=== PATIENT | female | born 1995 | race Caucasian/White ===

== ENCOUNTER 2017-09-03 10:40 | Inpatient (IN) | payer OTHER ==
--- NOTE | 2017-09-03 11:09 | HP ---
General Information - General Information Maternal Age: 22 Grav: 2 Para: 0 SAB: 1 IEA: 0 Estimated Due Date: 08/29/17 Determined By: Early Ultrasound Gestational Age in Weeks and Days: 40 Weeks and 5 Days Maternal Blood Type and Rh: A Positive - Results this Serology/RPR Result: Non-Reactive Rubella Result: Immune HBsAg Result: Negative HIV Result: Negative GBS Culture Result: Negative Past Medical History Delivery History: See Records Delivery History Comment: primip Pertinent Past Medical History: Non-Contributory Pertinent Past Surgical History: See Records Past Surgical History Comment: Hx ear tube placement, adenoidectomy, age 14 left breast abscess removal Pertinent Family History: See Records Family History Comment: MGM breast cancer - Antepartal Records Antepartal Records: Reviewed, Uncomplicated Review of Systems Constitutional: Uncomfortable - with UCs CV Complaint: No Respiratory: Shortness of Breath: No Gastrointestinal: No Nausea/Vomiting, Normal Bowel Movement Genitourinary: No Dysuria, No Bleeding, No Leaking Fluid Musculoskeletal: Contractions Neurological: No Headache, No Visual Changes Movement: Normal Exam Allergies/Adverse Reactions: Allergies bee venom protein (honey bee) Allergy (Verified 08/30/17 11:42) Hives Pork/Porcine Containing Products Allergy (Verified 09/03/17 10:58) Unknown Reaction Details turkey Allergy (Verified 09/03/17 10:58) Unknown Reaction Details BP 93/66 HR 76 RR 20 T 98.8 - Measurements Height: 5 ft 6 in Weight: 194 lb Weight in lbs: 194 Body Mass Index (BMI): 31.3 Pre- Weight: 163 lb Weight Gained This : 31 lbs and 0 ozs - Exam Abdomen: No Upper Quadrant Pain Breast: Breast Exam Deferred CVA: No CVA Tenderness Extremities: Edema - mild bilateral pedal edema Heart: Normal Rhythm/Heart Sounds HEENT: No Significant Findings Lungs: Clear Bilaterally Rectal: Rectal Exam Deferred Reflexes: DTR 2+ Thyroid: No Thyromegaly - Abdominal Exam Abdomen Exam: Non-Tender - between UCs, Fundal Height Consistent with Dates - Ultrasound/Biophysical Profile Ultrasound Status: Not Done Targeted Exam Findings See L&D Outpatient Visit Provider Note for Findings: N/A Estimated Weight: EFW 8lbs Cervical Exam: 4cm Effacement: 100% Presenting Part: Vertex Membrane Status: Intact Sterile Speculum Exam: not done Bleeding/Discharge: Bloody Show EFM Findings - External Monitor Findings Baseline Heart Rate: 130 - Difficult to trace due to maternal discomfort/ movement External Monitor Findings: Accelerations Present, No Pattern of Variable or Late Decelerations, Variability Moderate, Baseline Stable External Monitor Findings Comment: No evidence of metabolic acidemia Contractions: Regular, Moderate, >90 Seconds Contraction Frequency: q 2-3 Assessment/Plan - Reason for Visit Reason for Visit: labor evaluation - Obstetrical Risk Factors Risk Factors Comment: None - Plan Plan: Active Labor Plan Comment: Admit. Pt requests something for pain. Plan IV placement and labs. Anticipate - Date/Time of Admission Date of Admission: 09/03/17 Time of Admission: 11:09
[2017-09-03 11:33] LABS: ABS Basophils 0 10^3/ul (0-0.2); ABS Eosinophils 0 10^3/ul (0-0.6); ABS Monocytes 0.7 10^3/ul (0-0.8); ABS Neutrophils 9.2 10^3/ul (1.5-7.7); ABS Nucleated RBC 0 10^3/ul; Eosinophil % 0.3 % (0-6); Hematocrit 29 % (35-47); Hemoglobin 9.8 g/dl (12.0-16.0); Lymphocyte % 17.1 % (25-47); Mean Corpuscular HGB Conc 33 g/dl (31-36); Mean Corpuscular Hemoglobin 28 pg (27-31); Mean Corpuscular Volume 85 fL (80-97); Mean Platelet Volume 9.3 um3 (7.4-10.4); Nucleated Red Blood Cells % 0; Platelet Count 176 10^3/ul (150-450); Red Blood Count 3.45 10^6/ul (4.0-5.4); Red Cell Distribution Width 16 % (10.5-15); White Blood Count 11.9 10^3/ul (3.5-10.8)
[2017-09-03] MEDS ORDERED: OBEPIDURAL* 250 ML EPIDURAL ONE (11:51)
[2017-09-03] MEDS ORDERED: EPHEDrine (Pressors)* 50 MG/ML VIAL IV PUSH PRN (12:15)
[2017-09-03] MEDS ORDERED: Famotidine TAB* 20 MG PO PRN (12:15)
[2017-09-03] MEDS ORDERED: Sodium Citrate/Citric Acid* 15 ML UDC PO PRN (12:15)
[2017-09-03] MEDS ORDERED: Phenylephrine IV* 40 MCG/ML 10 ML SYRINGE IV PUSH PRN (12:15)
[2017-09-03] MEDS ORDERED: OBEPIDURAL* 250 ML EPIDURAL SCH (13:00)
[2017-09-03] MEDS ORDERED: Glycerin ADULT SUPP PR PRN (16:45)
[2017-09-03] MEDS ORDERED: Witch Hazel PAD* JAR TOPICAL PRN (16:45)
[2017-09-03] MEDS ORDERED: Dibucaine 1% 28.35 GM TUBE PR PRN (16:45)
[2017-09-03] MEDS ORDERED: Acetaminophen TAB* 325 MG PO PRN (16:45)
[2017-09-03] MEDS ORDERED: OXYTOCIN* 10 UNITS/ML 1 ML VIAL IM ONE (16:45)
[2017-09-03] MEDS: Simethicone TAB* 80 MG TAB.CHEW PO SCH (17:48)
[2017-09-03] MEDS: Docusate CAP* 100 MG PO SCH (19:37)
[2017-09-03] MEDS: Ibuprofen TAB* 600 MG PO PRN (19:37)
[2017-09-04] MEDS: Simethicone TAB* 80 MG TAB.CHEW PO SCH ×5 (04:18→22:30)
[2017-09-04] MEDS: Ibuprofen TAB* 600 MG PO PRN ×2 (04:20→16:26)
[2017-09-04 06:36] LABS: ABS Basophils 0 10^3/ul (0-0.2); ABS Eosinophils 0.1 10^3/ul (0-0.6); ABS Monocytes 0.8 10^3/ul (0-0.8); ABS Neutrophils 8.6 10^3/ul (1.5-7.7); ABS Nucleated RBC 0 10^3/ul; Eosinophil % 0.6 % (0-6); Hematocrit 26 % (35-47); Hemoglobin 8.6 g/dl (12.0-16.0); Lymphocyte % 17.6 % (25-47); Mean Corpuscular HGB Conc 34 g/dl (31-36); Mean Corpuscular Hemoglobin 29 pg (27-31); Mean Corpuscular Volume 85 fL (80-97); Mean Platelet Volume 8.9 um3 (7.4-10.4); Nucleated Red Blood Cells % 0; Platelet Count 161 10^3/ul (150-450); Red Cell Distribution Width 16 % (10.5-15); White Blood Count 11.5 10^3/ul (3.5-10.8)
[2017-09-04] MEDS: Ferrous Gluconate TAB* 324 MG TAB PO SCH ×2 (08:48→21:15)
[2017-09-04] MEDS: Docusate CAP* 100 MG PO SCH ×3 (08:48→21:15)
[2017-09-05] MEDS: Ferrous Gluconate TAB* 324 MG TAB PO SCH (08:23)
[2017-09-05] MEDS: Docusate CAP* 100 MG PO SCH ×2 (08:23→14:17)
[2017-09-05] MEDS: Ibuprofen TAB* 600 MG PO PRN ×2 (08:23→14:17)
[2017-09-05 08:25] VITALS: BP 114/61
== END 2017-09-05 14:40 | disposition home or self-care (01) | DRG 560 ==
LOC: MCHOBOUT 10:40 → MCHOB 11:24
PROVIDERS: ADMIT Midwife; ATTEND Midwife
PROC: 0UQGXZZ Repair Vagina, External Approach (ICD-10-PCS; principal; 2017-09-03)
PROC: 10E0XZZ Delivery of Products of Conception, External Approach (ICD-10-PCS; 2017-09-03)
PROC: 10907ZC Drainage of Amniotic Fluid, Therapeutic from Products of Conception, Via Natural or Artificial Opening (ICD-10-PCS; 2017-09-03)
PROC: 4A1HXCZ Monitoring of Products of Conception, Cardiac Rate, External Approach (ICD-10-PCS; 2017-09-03)
DX: O48.0 Post-term pregnancy (principal); O71.4 Obstetric high vaginal laceration alone; Z3A.40 40 weeks gestation of pregnancy; Z37.0 Single live birth; Z80.3 Family history of malignant neoplasm of breast; Z91.030 Bee allergy status; Z91.018 Allergy to other foods; O90.81 Anemia of the puerperium
CPT/HCPCS: 36415; 85025; 86850; 86900; 86901; A9270-GY; J2590

== ENCOUNTER 2018-04-12 14:34 | Emergency (ER) | payer OTHER ==
--- NOTE | 2018-04-12 16:57 | ED ---
GI/ HPI - HPI Summary HPI Summary: A 22 y/o female presents to [facility] with a chief complaint of vaginal bleeding since 04/10/18. She rates her pain as a 7/10. The patient reports that she started to spot on 04/10/18 but increased bleeding started at 11:00 04/12/18. She reports going through 7 pads in 1.5 hours. The patient is 11 weeks on 04/14/17, but OB referred her to the ED for a possible miscarriage. She had an US when she was 6 weeks . Her LNMP was 01/27/18. She denies dysuria. In the ED she is still bleeding. She reports that before the bleeding started she had back pain and cramping in her lower abdomen. She describes the bleeding as clots. - History of Current Complaint Chief Complaint: EDVaginalBleeding Time Seen by Provider: 04/12/18 16:39 Stated Complaint: POSS MISCARRIAGE Hx Obtained From: Patient Hx Last Menstrual Period: 03/09/16 Onset/Duration: Started Days Ago, Still Present Timing: Constant, Lasting Days Severity: Severe Current Severity: Severe Vaginal Bleeding Description: Clots Number of Pads per Hour: 7 - in 1.5 hours Pain Intensity: 7 - out of 10 Location of Pain: Diffuse Pain Characteristics: Cramping Associated Signs and Symptoms: Positive: Back Pain - prior to bleeding, Abdominal Pain - Allergy/Home Medications Allergies/Adverse Reactions: Allergies Allergy/AdvReac Type Severity Reaction Status Date / Time bee venom protein (honey bee) Allergy Hives Verified 04/12/18 14:42 Pork/Porcine Containing Allergy Unknown Verified 04/12/18 14:42 Products Reaction Details turkey Allergy Unknown Verified 04/12/18 14:42 Reaction Details Home Medications: Home Medications NK [No Home Medications Reported] 04/12/18 [History Confirmed 04/12/18] PMH/Surg Hx/FS Hx/Imm Hx Endocrine/Hematology History: Denies: Hx Diabetes Cardiovascular History: Denies: Hx Hypertension - Surgical History Surgery Procedure, Year, and Place: ear tubes Infectious Disease History: No Infectious Disease History: Denies: Hx Clostridium Difficile, Hx Hepatitis, Hx Human Immunodeficiency Virus (HIV), Hx of Known/Suspected MRSA, Hx Shingles, Hx Tuberculosis, Hx Known/ Suspected VRE, Hx Known/Suspected VRSA, History Other Infectious Disease, Traveled Outside the [place] in Last 30 Days - Family History Known Family History: Negative: Cardiac Disease, Hypertension - Social History Alcohol Use: None Substance Use Type: Reports: None Smoking Status (MU): Never Smoked Tobacco Review of Systems Negative: Fever Positive: Abdominal Pain - before vaginal bleeding Positive: other - positive: vaginal bleeding. Negative: dysuria Positive: Myalgia - back pain before vaginal bleeding All Other Systems Reviewed And Are Negative: Yes Physical Exam - Summary Physical Exam Summary: Appearance: The patient is well-nourished in no acute distress and in no acute pain. Skin: The skin is warm and dry and skin color reflects adequate perfusion. HEENT: The head is normocephalic and atraumatic. The pupils are equal and reactive. The conjunctivae are clear and without drainage. Nares are patent and without drainage. Mouth reveals moist mucous membranes and the throat is without erythema and exudate. The external ears are intact. The ear canals are patent and without drainage. The tympanic membranes are intact. Neck: The neck is supple with full range of motion and non-tender. There are no carotid bruits. There is no neck vein distension. Respiratory: Chest is non-tender. Lungs are clear to auscultation and breath sounds are symmetrical and equal. Cardiovascular: Heart is regular rate and rhythm. There is no murmur or rub auscultated. There is no peripheral edema and pulses are symmetrical and equal. Abdomen: The abdomen is soft and non-tender. There are normal bowel sounds heard in all four quadrants and there is no organomegaly palpated. Musculoskeletal: There is no back tenderness noted. Extremities are non-tender with full range of motion. There is good capillary refill. There is no peripheral edema or calf tenderness elicited. Neurological: Patient is alert and oriented to person, place and time. The patient has symmetrical motor strength in all four extremities. Cranial nerves are grossly intact. Deep tendon reflexes are symmetrical and equal in all four extremities. Psychiatric: The patient has an appropriate affect and does not exhibit any anxiety or depression. Triage Information Reviewed: Yes Vital Signs On Initial Exam: Initial Vitals Temp Pulse Resp BP Pulse Ox 98.2 F 77 16 131/82 100 04/12/18 14:39 04/12/18 14:39 04/12/18 14:39 04/12/18 14:39 04/12/18 14:39 Vital Signs Reviewed: Yes Diagnostics - Vital Signs Vital Signs Temp Pulse Resp BP Pulse Ox 04/12/18 16:37 94 117/83 04/12/18 14:39 98.2 F 77 16 131/82 100 - Laboratory Result Diagrams: 04/12/18 16:54 Lab Statement: Any lab studies that have been ordered have been reviewed, and results considered in the medical decision making process. GIGU Course/Dx - Course Course Of Treatment: Ms. Sweet presented to the emergency department approximately 11 weeks . She had an ultrasound at 6 weeks. She started passing some blood earlier today and believes she passed tissue. She was nontoxic in appearance and her vital signs are stable here. She brings in a plastic bag with what looks like tissue. Labs were obtained and her hCG is 1300. She is below the cutoff to get ultrasound at this time and it is likely she has completed her miscarriage. She is not doing much bleeding here. I recommended follow-up with her MEDICAL BILLING ASSISTANT. - Diagnoses Provider Diagnoses: Miscarriage Discharge - Sign-Out/Discharge Documenting (check all that apply): Patient Departure - DC - Discharge Plan Condition: Stable Disposition: HOME Referrals: Nilda Desouza MD [Primary Care Provider] - (2-3 days) Additional Instructions: Follow up with your OBGYN. Return to the ED for any new or worsening symptoms. - Billing Disposition and Condition Condition: STABLE Disposition: Home - Attestation Statements Document Initiated by Gail: Yes Documenting Scribe: Rock Packer Provider For Whom Gail is Documenting (Include Credential): Brien Xavier MD Scribe Attestation: I, Rock Packer, scribed for Brien Xavier MD on 04/12/18 at 2113. Scribe Documentation Reviewed: Yes Provider Attestation: The documentation as recorded by the Rock duenas accurately reflects the service I personally performed and the decisions made by me, Brien Xavier MD Status of Scribe Document: Viewed
[2018-04-12 17:04] LABS: ABS Basophils 0.1 10^3/ul (0-0.2); ABS Eosinophils 0.1 10^3/ul (0-0.6); ABS Lymphocytes 2.8 10^3/ul (1.0-4.8); ABS Monocytes 0.6 10^3/ul (0-0.8); ABS Neutrophils 5.3 10^3/ul (1.5-7.7); ABS Nucleated RBC 0 10^3/ul; Eosinophil % 0.6 %; Hematocrit 37 % (35-47); Hemoglobin 12.6 g/dl (12.0-16.0); Lymphocyte % 31.8 %; Mean Corpuscular HGB Conc 34 g/dl (31-36); Mean Corpuscular Hemoglobin 29 pg (27-31); Mean Corpuscular Volume 84 fL (80-97); Mean Platelet Volume 7.9 fL (7.4-10.4); Nucleated Red Blood Cells % 0; Platelet Count 247 10^3/ul (150-450); Red Blood Count 4.41 10^6/ul (4.00-5.40); Red Cell Distribution Width 17 % (10.5-15); White Blood Count 8.7 10^3/ul (3.5-10.8)
[2018-04-12 17:13] LABS: Urine Appearance Cloudy; Urine Bacteria 1+ (Absent); Urine Bilirubin Negative (Negative); Urine Blood 3+ (Negative); Urine Color Yellow; Urine Glucose Negative (Negative); Urine Ketones Negative (Negative); Urine Nitrite Negative (Negative); Urine Protein Negative (Negative); Urine Red Blood Cell 3+(>10/hpf) (Absent); Urine Specific Gravity 1.017 (1.010-1.030); Urine Urobilinogen Negative (Negative); Urine White Blood Cell 1+(6-10/hpf) (Absent)
[2018-04-12 18:40] VITALS: BP 120/77
--- NOTE | 2018-04-14 05:45 | PN ---
Progress Note - Progress Note Date of Service: 04/14/18 Note: patient urine culture grew E coli >100,000. sent script for macrobid 100mg bid x7 days. called and spoke with patient about adding medication.
--- NOTE | 2018-04-15 05:59 | PN ---
Progress Note - Progress Note Date of Service: 04/15/18 Note: Patient was placed on Macrobid which final culture is sensitive to. No further action required.
== END 2018-04-12 18:38 | disposition home or self-care (01) ==
LOC: ED 14:34
DX: O03.9 Complete or unspecified spontaneous abortion without complication (principal)
CPT/HCPCS: 36415; 81003; 81015; 84702; 85025; 87077; 87086; 87186; 88305; 99282

== ENCOUNTER → 2018-07-29 14:02 | Emergency (ER) | payer OTHER ==
--- NOTE | 2018-07-29 14:33 | ED ---
- HPI Summary HPI Summary: 23-year-old female LMP Jun 10 presents with vaginal spotting today. States she's had trace blood when wiped the past couple days. she denies any bowel pain. No nausea vomiting. No fevers. No urinary symptoms. She states that today just started to be enough to clot in pad. She states she has history of miscarriages and is worried she is having one. Has no medical conditions. blood type A+. - History of Current Complaint Chief Complaint: EDOBProblems Stated Complaint: POSS MISCARRIAGE PER PT Time Seen by Provider: 07/29/18 14:23 Pain Intensity: 0 - Assessment Hx Now: No Hx : 2 SAB: 1 IEA: 0 - Additional Pertinent History Maternal Blood Type and Rh: A Positive - Allergies/Home Medications Allergies/Adverse Reactions: Allergies Allergy/AdvReac Type Severity Reaction Status Date / Time bee venom protein (honey bee) Allergy Hives Verified 07/29/18 14:08 Home Medications: Home Medications NK [No Home Medications Reported] 07/29/18 [History Confirmed 07/29/18] PMH/Surg Hx/FS Hx/Imm Hx Endocrine/Hematology History: Denies: Hx Diabetes Cardiovascular History: Denies: Hx Hypertension - Surgical History Surgery Procedure, Year, and Place: ear tubes Infectious Disease History: No Infectious Disease History: Denies: Hx Clostridium Difficile, Hx Hepatitis, Hx Human Immunodeficiency Virus (HIV), Hx of Known/Suspected MRSA, Hx Shingles, Hx Tuberculosis, Hx Known/ Suspected VRE, Hx Known/Suspected VRSA, History Other Infectious Disease, Traveled Outside the [place] in Last 30 Days - Family History Known Family History: Positive: None - negative for HTN or CAD Negative: Cardiac Disease, Hypertension - Social History Alcohol Use: None Substance Use Type: Reports: None Smoking Status (MU): Never Smoked Tobacco Review of Systems Negative: Fever Negative: Chest Pain Negative: Shortness Of Breath Positive: Other - vaginal bleeding. Negative: Abdominal Pain Negative: dysuria All Other Systems Reviewed And Are Negative: Yes Physical Exam - Physical Exam Triage Information Reviewed: Yes Vital Signs Reviewed: Yes Appearance: Positive: Well-Appearing Skin: Positive: Warm, Dry Head/Face: Positive: Normal Head/Face Inspection Eyes: Positive: Normal, Conjunctiva Clear ENT: Positive: Pharynx normal Respiratory/Lung Sounds: Positive: Clear to Auscultation, Breath Sounds Present Cardiovascular: Positive: Normal, RRR Abdomen Description: Positive: Nontender, Soft Bowel Sounds: Positive: Present Musculoskeletal: Positive: Normal Neurological: Positive: Normal Psychiatric: Positive: Normal Diagnostics - Vital Signs Vital Signs Temp Pulse Resp BP Pulse Ox 07/29/18 14:03 97.9 F 90 16 136/91 98 - Laboratory Result Diagrams: 07/29/18 14:43 07/29/18 14:43 Lab Statement: Any lab studies that have been ordered have been reviewed, and results considered in the medical decision making process. - Ultrasound No standard instances Ultrasound Interpretation Completed By: Radiologist Summary of Ultrasound Findings: IMPRESSION: Single intrauterine gestation with a gestational age of 6 weeks 0 days. heart activity at 126 bpm. Course/Dx - Course Course Of Treatment: 23-year-old female LMP Jun 10 presents with vaginal spotting today. States she's had trace blood when wiped the past couple days. she denies any bowel pain. No nausea vomiting. No fevers. No urinary symptoms. She states that today just started to be enough to clot in pad. She states she has history of miscarriages and is worried she is having one. Has no medical conditions. On exam nontender abdomen. wbc 6.9 hcg 2999. ultrasound shows single intrauterine gestation at 6 weeks with heart activity at 126mph. will have follow up with ob. patient understand and agrees with plan. - Differential Diagnosis/HQI/PQRI: Threatened , Ectopic , Intrauterine - Diagnoses Provider Diagnoses: Vaginal bleeding during Discharge - Sign-Out/Discharge Documenting (check all that apply): Patient Departure Patient Received Moderate/Deep Sedation with Procedure: No - Discharge Plan Condition: Good Disposition: HOME Patient Education Materials: Threatened Miscarriage (ED) Referrals: Modesto Simms MD [Medical Doctor] - Additional Instructions: The education provided is for your information. You may or may not have a miscarriage at this point. Follow up with OBGYN as may need repeat HCG level drawn to trend Return to ED if develop severe abdominal pain, fever, severe bleeding with symptoms such as lightheadedness or any new or worsening symptoms - Billing Disposition and Condition Condition: GOOD Disposition: Home
[2018-07-29 14:50] LABS: ABS Basophils 0 10^3/ul (0-0.2); ABS Eosinophils 0.1 10^3/ul (0-0.6); ABS Lymphocytes 2.4 10^3/ul (1.0-4.8); ABS Monocytes 0.5 10^3/ul (0-0.8); ABS Neutrophils 3.9 10^3/ul (1.5-7.7); ABS Nucleated RBC 0 10^3/ul; Eosinophil % 0.9 %; Hematocrit 35 % (33-41); Hemoglobin 11.7 g/dL (12.0-16.0); Lymphocyte % 34.8 %; Mean Corpuscular HGB Conc 34 g/dL (31-36); Mean Corpuscular Hemoglobin 28 pg (27-31); Mean Corpuscular Volume 84 fL (80-97); Mean Platelet Volume 7.8 fL (7.4-10.4); Nucleated Red Blood Cells % 0; Platelet Count 245 10^3/uL (150-450); Red Blood Count 4.15 10^6 /uL (3.70-4.87); Red Cell Distribution Width 17 % (10.5-15); White Blood Count 6.9 10^3/uL (3.5-10.8)
[2018-07-29 15:18] LABS: Albumin 4.1 g/dL (3.2-5.2); Albumin/Globulin Ratio 1.6 (1-3); BUN/Creatinine Ratio 24.6 (8-20); Calcium 8.6 mg/dL (8.6-10.3); EGFR African American 149.8 (>60); EGFR Non-African American 123.8 (>60); Globulin 2.5 g/dL (2-4); Potassium 3.9 mmol/L (3.5-5.0); Total Bilirubin 0.3 mg/dL (0.2-1.0); Total Protein 6.6 g/dL (6.4-8.9)
[2018-07-29 16:16] VITALS: BP 125/71
== END | disposition home or self-care (01) ==
LOC: ED 14:02
DX: O20.9 Hemorrhage in early pregnancy, unspecified (principal); O09.291 Supervision of pregnancy with other poor reproductive or obstetric history, first trimester; Z3A.01 Less than 8 weeks gestation of pregnancy
CPT/HCPCS: 36415; 76817; 80053; 84702; 85025; 99282

== ENCOUNTER 2018-08-09 13:27 | Emergency (ER) | payer OTHER ==
--- OUTSIDE RECORDS SUMMARY | 2018-08-09 13:39 | XMS REPORT | Continuity of Care Document ---
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 Payers Date Identification Numbers Payment Provider Subscriber Policy Number: [id number] [facility] Tangela Downey PayID: [id number] [address] [place] [address] Policy Number: [id number] Medicaid [place] Tangela Downey PayID: [id number] [address] [place] [address] Advance Directives Description No Information Available Problems Resolved Problems Provider Date Primigravida Benjy Fair CNM Onset: 02/16/2017 Resolved: 09/03/2017 Family History Date Family Member(s) Observation Comments Father A&W Mother A&W Children 1 First Daughter A&W Siblings 11 all half siblings save for fraternal twin sister First Brother A&W Second Brother A&W Third Brother A&W Fourth Brother A&W First Sister A&W Second Sister A&W Third Sister A&W Fourth Sister A&W Fifth Sister A&W Sixth Sister A&W Paternal Grandfather A&W Paternal Grandmother A&W Maternal Grandfather A&W Maternal Grandmother due to Breast Cancer () Social History Type Date Description Comments Sex Unknown Education Currently working towards [employer] Marital Status Single Lives With Boyfriend and his parents Lives With Daughter Diet Patient is on a lactose-free diet Diet Allergy, Food turkey, pork Pets 3 dogs Pets 2 cats 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 Tobacco Use Start: Unknown Never Smoked Cigarettes ETOH Use Does Not Drink Alcohol Recreational Drug Use Does Not Use Drugs Tobacco Use Start: Unknown Patient has never smoked Smoking Status Reviewed: 08/06/18 Patient has never smoked Exercise Type/Frequency Exercises sporadically Seat Belt/Car Seat Always uses seat belt Currently Active Patient is currently sexually active Contraceptive Methods Current methods include condoms STD's No STD History Allergies, Adverse Reactions, Alerts Description No Known Drug Allergies Medications Active Medications SIG Qnty Indications Ordering Provider Date Ferrous Gluconate one tablet by 60tabs Elvia Barragan CNM 06/02/2017 mouth bid 324(38Fe) mg Tablets History Medications No Active Medications Unknown 02/16/2017 - 02/16/2017 Dha 1 by mouth every 90caps Maritza Jump, 02/16/2017 - 200mg day any generic ANP-C 04/14/2018 Capsules Flagyl 1 by mouth twice 14tabs Maritza Jump, 02/16/2017 - 500mg Tablets a day x7 start ANP-C 08/30/2017 02-21-2017 Immunizations CPT Code Status Date Vaccine Lot # [id number] Given 06/01/2017 Tetnus, Diptheria Toxoids And Acellular Pertussis, 9PD92 PT > 7Yrs Old [id number] Given 02/16/2017 Influenza Vaccine Quadrivalent Preser/Antibiotic [id number] Free Im Use Vital Signs Date Vital Result Comment 08/06/2018 10:35am BP Systolic 112 mmHg BP Diastolic 60 mmHg Height 64.5 inches 5'4.50" Weight 174.00 lb BMI (Body Mass Index) 29.4 kg/m2 Last Menstrual Period 1927457 3 Parity 1 04/14/2018 1:47pm BP Systolic 106 mmHg BP Diastolic 70 mmHg Height 64.5 inches 5'4.50" Weight 173.00 lb BMI (Body Mass Index) 29.2 kg/m2 Last Menstrual Period 9369508 3 Parity 1 10/22/2017 9:15am BP Systolic 108 mmHg BP Diastolic 64 mmHg Height 64.5 inches 5'4.50" Weight 169.00 lb BMI (Body Mass Index) 28.6 kg/m2 Last Menstrual Period 6382256 2 Parity 1 02/16/2017 2:06pm BP Systolic 112 mmHg BP Diastolic 70 mmHg Height 64.5 inches 5'4.50" Weight 165.00 lb BMI (Body Mass Index) 27.9 kg/m2 Last Menstrual Period 3510972 2 Parity 0 Results Test Date Facility Test Result H/L Range Note Laboratory test 08/02/2018 [facility] HCG <pending> finding [place] [address] [phone] Laboratory test 04/29/2018 [facility] HCG 9.95 mIU/mL 1 finding [place] [address] [phone] Laboratory test 04/14/2018 [facility] HCG 365.74 mIU/ mL [place] [address] [phone] Urinalysis 08/01/2017 [facility] Urine Color Yellow [place] [address] [phone] Urine Appearance Cloudy Urine Specific [place] 1.016 N 1.010-1.030 Urine pH 7.0 N 5-9 Urine Urobilinogen Negative Negative Urine Ketones Negative Negative Urine Protein Negative Negative Urine Leukocytes 3+ Abnormal Negative Urine Blood Negative Negative Urine Nitrite Negative Negative Urine Bilirubin Negative Negative Urine Glucose Negative Negative Urine White Blood Cell 2+(11-20/hpf) Abnormal Absent Urine Red Blood Cell 1+(3-5/hpf) Abnormal Absent Urine Bacteria Absent Absent Urine Squamous Epithelial Cell Present Abnormal Absent Laboratory test 08/01/2017 [facility] Rupture of Negative 3 finding [place] [address] Membranes [phone] Urine Culture And 08/01/2017 [facility] Urine Culture SEE RESULT 4 Sensitivities [place] [address] BELOW [phone] Urinalysis Profile 07/27/2017 [facility] Urine Color Yellow [place] [address] [phone] Urine Appearance Clear Urine Specific [place] 1.008 Low 1.010-1.030 Urine pH 6.0 N 5-9 Urine Urobilinogen Negative Negative Urine Ketones Negative Negative Urine Protein Negative Negative Urine Leukocytes Negative Negative Urine Blood Negative Negative Urine Nitrite Negative Negative Urine Bilirubin Negative Negative Urine Glucose Negative Negative Laboratory test 07/27/2017 [facility] Genital For SEE RESULT 5 finding [place] [address] GRP B Strep BELOW [phone] Only Laboratory test 06/01/2017 [facility] Glucose 1 HR 98 mg/dL N 70-160 6 finding [place] [address] Post Prandial [phone] CBC With No Diff 06/01/2017 [facility] White Blood 8.9 10^3/uL N 3.5-10 [place] [address] Count .8 [phone] Red Blood Count 2.98 10^6/uL Low 4.0-5.4 Hemoglobin 10.0 g/dL Low 12.0-16.0 Hematocrit 29 % Low 35-47 Mean Corpuscular Volume 97 fL N 80-97 Mean Corpuscular Hemoglobin 33 pg High 27-31 Mean Corpuscular HGB Conc 35 g/dL N 31-36 Red Cell Distribution Width 13 % N 10.5-15 Platelet Count 188 10^3/uL N 150-450 Mean Platelet Volume 10 um3 N 7.4-10.4 Urine Culture And 03/19/2017 [facility] Urine Culture SEE RESULT 7 [place] [address] BELOW [phone] CBC With No Diff 02/16/2017 [facility] White Blood 8.8 10^3/uL N 3.5-10 [place] [address] Count .8 [phone] Red Blood Count 3.89 10^6/uL Low 4.0-5.4 Hemoglobin 12.1 g/dL N 12.0-16.0 Hematocrit 37 % N 35-47 Mean Corpuscular Volume 95 fL N 80-97 Mean Corpuscular Hemoglobin 31 pg N 27-31 Mean Corpuscular HGB Conc 33 g/dL N 31-36 Red Cell Distribution Width 17 % High 10.5-15 Platelet Count 216 10^3/uL N 150-450 Mean Platelet Volume 9 um3 N 7.4-10.4 Type And Screen 02/16/2017 [facility] Patient [place] [address] [phone] Antibody Screen NEGATIVE N HIV 1/2 AB 02/16/2017 [facility] HIV 1 2 Nonreactive N Nonreactive 8 [place] [address] Antibody [phone] Lead 02/16/2017 [facility] Lead <1.0 g/dL 0.0-4.9 9 [place] [address] [phone] Submitting Laboratory 10 Toxoplasma Igg & 02/16/2017 [facility] Toxoplasma IgG Negative [place] [address] Antibody [phone] Toxoplasma IgG Antibody Index <3 IU/mL 11 Toxoplasma IgM Antibody Negative Negative 12 GC/Chlamydia Dna 02/16/2017 [facility] Chlamydia Negative [place] [address] trachomatis Rna [phone] Neisseria gonorrhoeae (GC) Rna Negative N Negative PNL No 02/16/2017 [facility] Rubella Screen Immune IU/ mL N Immune 13 [place] [address] [phone] Hemoglobin A1c 5.2 % N 4.0-5.6 14 Hepatitis B Surface Ag Nonreactive N Nonreactive 15 Syphillis Igg W/Reflex RPR Nonreactive N Nonreactive 16 1 <5.0 Negative 5.0 - 25.0 Indeterminate (Repeat testing recommended after 72 hours) >25.0 Positive Perimenopausal women can display HCG levels of up to 20 mIU/mL 2 <5.0 Negative 5.0 - 25.0 Indeterminate (Repeat testing recommended after 72 hours) >25.0 Positive Perimenopausal women can display HCG levels of up to 20 mIU/mL 3 A NEGATIVE results indicates there is no evidence of membrane rupture. 4 SEE RESULT BELOW Name: PAULINE DOWNEYORAH : [address]: Delfin Ga [facility] Acct: [id number] Unit: [id number] AGE: 22 Location: [facility] Re08/01/17 SEX: F Status: DEP REF SPEC: [id number] BHARAT: 08/01/17 [facility] DR: Delfin Ga [facility] REQ: [id number] RECD: 08/01/17 STATUS: SENDY RAND DR: Nilda Desouza MD _ SOURCE: URINE SPDESC: ORDERED: Urine Culture Procedure Result Reported Site Urine Culture Final 08/02/17- 0844 ML No growth of clinically significant organisms * ML - Main Lab . END OF REPORT DEPARTMENT OF PATHOLOGY, [address] [place] [address] Kehinde Weaver M.D. Director [facility] # [id number] 5 SEE RESULT BELOW Name: TANGELA DOWNEY : [address]: Kalyn Barragan [facility] Acct: [id number] Unit: [id number] AGE: 22 Location: [facility] Re07/27/17 SEX: F Status: REG REF SPEC: [id number] BHARAT: 07/27/17-[address]: Kalyn Barragan [facility] REQ: [id number] RECD: 07/27/17 STATUS: COMP _ SOURCE: CER/VAG/RE SPDESC: ORDERED: Grp B Strp Scrn COMMENTS: [id number] QUERIES: Is Patient Penicillin Allergic? N Is patient penicillin allergic and/or sensitivities needed? N Provider Requisition # C77#[id number] Procedure Result Reported Site Group B Strep Culture Screen Final 07/29/17- 1121 ML Group B Strep Screen Negative * ML - Main Lab . END OF REPORT DEPARTMENT OF PATHOLOGY, [address] [place] [address] Kehinde Weaver M.D. Director [facility] # [id number] 7 SEE RESULT BELOW Name: TANGELA DOWNEY : [address]: Delfin Ga CNM Acct: [id number] Unit: [id number] AGE: 21 Location: [facility] Re03/19/17 SEX: F Status: REG REF SPEC: [id number] BHARAT: 03/19/17-[address]: Delfin Ga CNM REQ: [id number] RECD: 03/19/17 STATUS: COMP _ SOURCE: URINE SPDESC: ORDERED: Urine Culture COMMENTS: [id number] Urine Source: Random Procedure Result Reported Site Urine Culture Final 03/21/17- 1128 ML No growth of clinically significant organisms * ML - MAIN LAB ([facility]) . END OF REPORT * ML=Testing performed at Main Lab DEPARTMENT OF PATHOLOGY, [address] [place] [address] Kehinde Weaver M.D. Director [facility] # [id number] 8 It is recognized that currently available assays for the detection of antibodies to HIV-1 and/or HIV-2 may not detect all infected individuals. HIV antibodies may be undetectable in some stages of the infection and in some clinical conditions. The performance of this assay has not been established for populations of infants or children. Assayed by Chemiluminescence Microparticle Immunoassay on the Siemens Advia Centaur CP. Values obtained with different methods or kits cannot be used interchangeably.The diagnostic specificity of the ADVIA Centaur 1/O/2 Enhanced assay in the low risk population was 99.90% (6012/6058) with a 95% confidence interval of 99.78 to 99.96%. 9 ADDITIONAL INFORMATION Testing performed by Inductively Coupled Plasma-Mass Spectrometry (ICP-MS). This test was developed and its performance characteristics determined by [facility] in a manner consistent with CLIA requirements. This test has not been cleared or approved by the U.S. Food and Drug Administration. 10 Test Performed by: [facility] [place] [address] 11 REFERENCE VALUE <=9 IU/mL (Negative) 10-11 IU/mL (Equivocal) >=12 IU/mL (Positive) Test Performed by: [facility] [address] 12 No IgM antibodies to T. gondii detected. Results may be negative up to 7 days following infection. 13 [id number] 14 Therapeutic target for the treatment of diabetes mellitus patients is <7% HBA1C, and in selective patients <6.0%. Please refer to [place] [employer] diabetic care guidelines for further information. 15 [id number] 16 Warning: A positive result is not useful for establishing a diagnosis of syphilis. In most situations, such a result may reflect a prior treated infection; a negative result can exclude a diagnosis of syphilis except for incubating or early primary disease. Procedures Date Code Description Status 09/03/2017 65503 Obstetric Care Routine Completed 09/02/2017 76732 Non-Stress Test Completed 08/30/2017 47019 Non-Stress Test Completed 08/01/2017 34408 Non-Stress Test Completed 07/27/2017 14678 Echography Uterus Limited Completed 07/27/2017 25887 Non-Stress Test Completed 04/07/2017 90591 Echography Uterus Complete Completed 02/16/2017 37476 OB Ultrasound First Trimester Completed Encounters Type Date Location Provider Dx Diagnosis Office Visit 04/14/2018 [facility] Elvia Barragan CNM O03.4 Incomplete 2:00p spontaneous without complication Office Visit 09/02/2017 Delivery Ashley Lauryn, O47.1 False labor at or 8:03a LM after 37 completed weeks of gestation Office Visit 08/30/2017 Delivery Benjy Fair CNM O36.8131 Decreased 9:15a movements, third trimester, fetus 1 Office Visit 08/01/2017 Delivery Delfin Sury, O47.1 False labor at or 9:43a CNM after 37 completed weeks of gestation Office Visit 07/27/2017 Delivery Benjy Fair CNM O47.03 False labor before 37 8:26a completed weeks of gest, third tri Plan of Treatment Future Appointment(s):08/19/2018 2:00 pm - Jennifer Rosenbaum CNM at [facility]08/19/2018 1:30 pm - Ultrasounds at [facility]
[2018-08-09] MEDS ORDERED: NS 0.9% 1000 ML** 1,000 ML IV ONE (14:07)
[2018-08-09] MEDS ORDERED: Ketorolac INJ* 30 MG/ML 1 ML VIAL IV PUSH ONE (14:07)
--- NOTE | 2018-08-09 14:15 | ED ---
GI/ HPI - HPI Summary HPI Summary: Pt is a 23 y/o F presenting to the ED with a chief complaint of issues. The pt was 7 weeks , and she had a miscarriage on the 05 of August. She has had one miscarriage before, in March of 2018. She initially experienced pain on 08/07, but it was mild and only in her L hip area. This morning, she woke up with an intense burning pain all in her lower abd. She took IBU which did not help, the pain is worsened with movement, and the bleeding is heavy, causing her to go through approximately one pad every 1.5 hours. Pt denies any fever, chills, erythema of eyes, sore throat, CP, SOB, cough, N/V , dysuria, hematuria, myalgia, edema, rash, dizziness, or lightheadedness. - History of Current Complaint Chief Complaint: EDVaginalBleeding Time Seen by Provider: 08/09/18 13:55 Stated Complaint: VAGINAL BLEEDING, CRAMPING PER PT Hx Obtained From: Patient Hx Last Menstrual Period: 03/09/16 Onset/Duration: Started Hours Ago, Still Present Timing: Constant, Lasting Hours Severity: Severe Current Severity: Severe Vaginal Bleeding Description: Bright Red Number of Pads per Day: 9 Number of Pads per Hour: 1 Pain Intensity: 7 Location of Pain: Suprapubic Pain Characteristics: Cramping, Burning Associated Signs and Symptoms: Positive: Abdominal Pain. Negative: Dizziness, Nausea, Vomiting, Fever, Hematuria, Dysuria, Chills, Lightheadedness, Cough, Chest Pain - Allergy/Home Medications Allergies/Adverse Reactions: Allergies Allergy/AdvReac Type Severity Reaction Status Date / Time bee venom protein (honey bee) Allergy Hives Verified 08/09/18 13:28 PMH/Surg Hx/FS Hx/Imm Hx Previously Healthy: Yes Endocrine/Hematology History: Denies: Hx Diabetes Cardiovascular History: Denies: Hx Hypertension - Surgical History Surgery Procedure, Year, and Place: ear tubes Infectious Disease History: No Infectious Disease History: Denies: Hx Clostridium Difficile, Hx Hepatitis, Hx Human Immunodeficiency Virus (HIV), Hx of Known/Suspected MRSA, Hx Shingles, Hx Tuberculosis, Hx Known/ Suspected VRE, Hx Known/Suspected VRSA, History Other Infectious Disease, Traveled Outside the [place] in Last 30 Days - Family History Known Family History: Negative: Cardiac Disease, Hypertension - Social History Alcohol Use: None Hx Substance Use: No Substance Use Type: Reports: None Hx Tobacco Use: No Smoking Status (MU): Never Smoked Tobacco Review of Systems Negative: Fever, Chills Negative: Erythema Negative: Sore Throat Negative: Chest Pain Negative: Shortness Of Breath, Cough Positive: Abdominal Pain. Negative: Vomiting, Nausea Positive: burning, other - vaginal bleeding. Negative: dysuria, hematuria Negative: Myalgia, Edema Negative: Rash Neurological: Negative - lightheadedness, dizziness All Other Systems Reviewed And Are Negative: Yes Physical Exam - Summary Physical Exam Summary: Constitutional: Well-developed, Well-nourished, Alert. (-) Distressed Skin: Warm, Dry HENT: Normocephalic; Atraumatic Eyes: Conjunctiva normal Neck: Musculoskeletal ROM normal neck. (-) JVD, (-) Stridor, (-) Tracheal deviation Cardio: Rhythm regular, rate normal, Heart sounds normal; Intact distal pulses; The pedal pulses are 2+ and symmetric. Radial pulses are 2+ and symmetric. (-) Murmur Pulmonary/Chest wall: Effort normal. (-) Respiratory distress, (-) Wheezes, (-) Rales Abd: Soft, Mild diffuse abd tenderness, with most tenderness in lower abd bilaterally, (-) Distension, (-) Guarding, (-) Rebound Musculoskeletal: (-) Edema Lymph: (-) Cervical adenopathy Neuro: Alert, Oriented x3 Psych: Mood and affect Normal Triage Information Reviewed: Yes Vital Signs On Initial Exam: Initial Vitals Temp Pulse Resp BP Pulse Ox 97.9 F 83 16 132/83 98 08/09/18 13:28 08/09/18 13:28 08/09/18 13:28 08/09/18 13:28 08/09/18 13:28 Vital Signs Reviewed: Yes Diagnostics - Vital Signs Vital Signs Temp Pulse Resp BP Pulse Ox 08/09/18 13:28 97.9 F 83 16 132/83 98 - Laboratory Result Diagrams: 08/09/18 14:20 08/09/18 14:20 Lab Statement: Any lab studies that have been ordered have been reviewed, and results considered in the medical decision making process. - Ultrasound No standard instances Ultrasound Interpretation Completed By: Radiologist Summary of Ultrasound Findings: Transvaginal US. Negative for appreciable retained products of conception. ED physician has reviewed this report. GIGU Course/Dx - Course Course Of Treatment: Pt is a 23 y/o F presenting to the ED with a chief complaint of vaginal bleeding/pain. She miscarried a baby on 08/05, the tissue has been sent to pathology, but she started experiencing pain on 08/07. She woke up this morning with intense burning pain in her lower abd and bleeding at a rate of about 1 pad every 1.5 hours. Pt denies any fever, chills, erythema of eyes, sore throat, CP, SOB, cough, N/V, dysuria, hematuria, myalgia, edema, rash , dizziness, or lightheadedness. Transvaginal US shows: Negative for appreciable retained products of conception. She will be signed out to Dr. Otero pending CT A/P results, with dx of lower abd pain. - Diagnoses Provider Diagnoses: Lower abdominal pain Discharge - Sign-Out/Discharge Documenting (check all that apply): Sign-Out Patient Signing out patient TO: Brien Otero - Discharge Plan Condition: Stable Referrals: No Primary Care Phys,NOPCP [Primary Care Provider] - - Attestation Statements Document Initiated by Scribe: Yes Documenting Scribe: Kalyn Bradley Provider For Whom Scribe is Documenting (Include Credential): Jose Iniguez MD. Scribe Attestation: Kalyn Ro, scribed for Jose Iniguez MD. on 08/09/18 at 1858. Status of Scribe Document: Ready
[2018-08-09 14:27] LABS: ABS Basophils 0 10^3/ul (0-0.2); ABS Eosinophils 0.1 10^3/ul (0-0.6); ABS Lymphocytes 1.9 10^3/ul (1.0-4.8); ABS Monocytes 0.5 10^3/ul (0-0.8); ABS Neutrophils 3.8 10^3/ul (1.5-7.7); ABS Nucleated RBC 0 10^3/ul; Eosinophil % 1.3 %; Hematocrit 34 % (33-41); Hemoglobin 11.2 g/dL (12.0-16.0); Lymphocyte % 30.5 %; Mean Corpuscular HGB Conc 34 g/dL (31-36); Mean Corpuscular Hemoglobin 28 pg (27-31); Mean Corpuscular Volume 85 fL (80-97); Mean Platelet Volume 7.8 fL (7.4-10.4); Nucleated Red Blood Cells % 0.1; Platelet Count 210 10^3/uL (150-450); Red Blood Count 3.96 10^6 /uL (3.70-4.87); Red Cell Distribution Width 16 % (10.5-15); White Blood Count 6.4 10^3/uL (3.5-10.8)
[2018-08-09 14:44] LABS: Albumin/Globulin Ratio 1.7 (1-3); BUN/Creatinine Ratio 23.5 (8-20); C Reactive Protein 1.31 mg/L (<8.01); Calcium 8.8 mg/dL (8.6-10.3); EGFR African American 132.2 (>60); EGFR Non-African American 109.2 (>60); Globulin 2.4 g/dL (2-4); Potassium 3.8 mmol/L (3.5-5.0); Total Bilirubin 0.3 mg/dL (0.2-1.0); Total Protein 6.4 g/dL (6.4-8.9)
[2018-08-09 15:59] LABS: Urine Appearance Clear; Urine Bacteria 3+ (Absent); Urine Bilirubin Negative (Negative); Urine Blood 3+ (Negative); Urine Color Yellow; Urine Glucose Negative (Negative); Urine Ketones Negative (Negative); Urine Nitrite Positive (Negative); Urine Protein Negative (Negative); Urine Red Blood Cell Trace(0-2/hpf) (Absent); Urine Specific Gravity 1.023 (1.010-1.030); Urine Squamous Epithelial Cell Present (Absent); Urine Urobilinogen Negative (Negative); Urine White Blood Cell Trace(0-5/hpf) (Absent)
[2018-08-09] MEDS ORDERED: oxyCODONE/Acetamin 5/325 MG* TAB PO ONE (17:11)
[2018-08-09] MEDS ORDERED: Iohexol 300* (CONTRAST) 10 ML SDV IV ONE (17:47)
[2018-08-09 20:17] VITALS: BP 108/64
--- NOTE | 2018-08-09 20:20 | ED ---
Progress - Progress Note Progress Note: The patient is a 23 year old female who [facility] who was a sign out from Dr. Iniguez and received by Dr. Otero. She is pending disposition and CT A/P report results. - Results/Orders Results/Orders: CT A/P Reveals No CT findings to correlate with patient's symptomatology as per radiologist report. ED Physician has reviewed this radiology report. Course/Dx - Course Course Of Treatment: Pt is a 23 y/o F who was signed out to Dr. Otero pending CT A/P results, with dx of lower abd pain. The CT A/P report revealed negative findings. The patient will be D/C home with a dx of spontaneous . - Diagnoses Provider Diagnoses: Spontaneous Discharge - Sign-Out/Discharge Documenting (check all that apply): Patient Departure, Receiving Sign-Out Receiving patient FROM: Jose Iniguez Patient Received Moderate/Deep Sedation with Procedure: No - Discharge Plan Condition: Improved Disposition: HOME Prescriptions: oxyCODONE TAB* [Roxycodone TAB 5 mg*] 5 mg PO Q4H PRN #10 tab MDD 6 tabs PRN Reason: Pain Patient Education Materials: Miscarriage (ED) Referrals: No Primary Care Phys,NOPCP [Primary Care Provider] - Additional Instructions: Contact your OB tomorrow for followup, if your symptoms continue you may need a d&c, but hopefully your body will heal without it. - Billing Disposition and Condition Condition: IMPROVED Disposition: Home - Attestation Statements Document Initiated by Gail: Yes Documenting Scribe: Delio Medellin Provider For Whom Gail is Documenting (Include Credential): Dr. Brien Borregoibchuck Attestation: Delio Ro scribed for Dr. Brien Otero on 08/10/18 at 0100. Scribe Documentation Reviewed: Yes Provider Attestation: The documentation as recorded by the Delio duenas accurately reflects the service I personally performed and the decisions made by me, Dr. Brien Otero Status of Scribe Document: Viewed
--- NOTE | 2018-08-11 16:03 | PN ---
Progress Note - Progress Note Date of Service: 08/09/18 Note: Urine culture growing >100k e. coli. Pt. not treated. I called and spoke with pt. today at 1600 and discussed results. Will start on keflex based on sensitivity, rx sent to pharmacy. Pt. understands and agrees with plan. <Zachariah Casillas - Last Filed: 08/11/18 16:01> Attestation Statement Provider Attestation: I was available for consult. This patient was seen by the DANIEL. The patient was not presented to, seen by, or examined by me. -Conchis <Janie Del Toro - Last Filed: 08/12/18 15:27>
== END 2018-08-09 20:15 | disposition home or self-care (01) ==
LOC: ED 13:27
DX: O03.9 Complete or unspecified spontaneous abortion without complication (principal); R10.30 Lower abdominal pain, unspecified
CPT/HCPCS: 36415; 74177; 76830; 80053; 81003; 81015; 83605; 83690; 85025; 86140; 87077; 87086; 87186; 96361; 96374; 99284; A9270-GY; J1885; Q9967

== ENCOUNTER 2018-11-14 17:32 | Emergency (ER) | payer MEDICAID, OTHER ==
[2018-11-14 18:02] VITALS: BP 105/57
--- NOTE | 2018-11-14 18:06 | UC ---
Complaint Female HPI - HPI Summary HPI Summary: 2 days of pain and burning with urination no fevers, low back but no flank pain - History Of Current Complaint Chief Complaint: UCGU Stated Complaint: BURNING URINATION Time Seen by Provider: 11/14/18 18:05 Hx Obtained From: Patient Hx Last Menstrual Period: [id number] ?: No Onset/Duration: Gradual Onset, Lasting Days - 2 Timing: Constant Pain Intensity: 9 Pain Scale Used: 0-10 Numeric Character: Burning Aggravating Factor(s): Urination Alleviating Factor(s): Position - Allergies/Home Medications Allergies/Adverse Reactions: Allergies Allergy/AdvReac Type Severity Reaction Status Date / Time bee venom protein (honey bee) Allergy Hives Verified 11/14/18 18:03 Home Medications: Home Medications Cranberry Fruit Extract [Cranberry Extract] 1 tab PO DAILY 11/14/18 [History Confirmed 11/14/18] PMH/Surg Hx/FS Hx/Imm Hx Previously Healthy: Yes - Surgical History Surgical History: Yes Surgery Procedure, Year, and Place: ear tubes - Family History Known Family History: Negative: Cardiac Disease, Hypertension - Social History Occupation: Employed Full-time Lives: With Family Alcohol Use: None Substance Use Type: None Smoking Status (MU): Never Smoked Tobacco - Immunization History Most Recent Influenza Vaccination: 02/16/17 Most Recent Pneumonia Vaccination: Unknown Review of Systems All Other Systems Reviewed And Are Negative: Yes Constitutional: Positive: Negative Skin: Positive: Negative Eyes: Positive: Negative ENT: Positive: Negative Respiratory: Positive: Negative Cardiovascular: Positive: Negative Gastrointestinal: Positive: Negative Genitourinary: Positive: Dysuria, Frequency, Urgency Motor: Positive: Negative Neurovascular: Positive: Negative Musculoskeletal: Positive: Negative Neurological: Positive: Negative Psychological: Positive: Negative Is Patient Immunocompromised?: Yes Physical Exam Triage Information Reviewed: Yes Appearance: Well-Appearing, No Pain Distress, Well-Nourished Vital Signs: Initial Vital Signs Temp 98.7 F 11/14/18 17:57 Pulse 87 11/14/18 17:57 Resp 16 11/14/18 17:57 BP 105/57 11/14/18 17:57 Pulse Ox 100 11/14/18 17:57 Vital Signs Reviewed: Yes Eye Exam: Normal Eyes: Positive: Conjunctiva Clear ENT Exam: Normal ENT: Positive: Normal ENT inspection, Hearing grossly normal. Negative: Trismus , Muffled voice, Hoarse voice Neck exam: Normal Neck: Positive: Supple, Nontender, No Lymphadenopathy Respiratory Exam: Normal Respiratory: Positive: Chest non-tender, Lungs clear, Normal breath sounds, No respiratory distress, No accessory muscle use Cardiovascular Exam: Normal Cardiovascular: Positive: RRR, No Murmur, Pulses Normal, Brisk Capillary Refill Abdominal Exam: Normal Abdomen Description: Positive: Nontender, No Organomegaly, Soft. Negative: CVA Tenderness (R), CVA Tenderness (L) Musculoskeletal Exam: Normal Musculoskeletal: Positive: Strength Intact, ROM Intact, No Edema Neurological Exam: Normal Neurological: Positive: Alert, Muscle Tone Normal Psychological Exam: Normal Skin Exam: Normal Complaint Female Dx - Course Course Of Treatment: increase fluids, ibuprofen for pain culture urine bactrim ds follow with pcp- - Differential Dx/Diagnosis Provider Diagnosis: UTI (urinary tract infection) Discharge - Sign-Out/Discharge Documenting (check all that apply): Patient Departure All imaging exams completed and their final reports reviewed: No Studies - Discharge Plan Condition: Stable Disposition: HOME Prescriptions: Sulfamethox/Trimethoprim DS* [Bactrim DS 800/160 TAB*] 1 tab PO BID #13 tab Patient Education Materials: Phenazopyridine (By mouth), Urinary Tract Infection in Women (ED) Referrals: [facility] [Outside] - 1 Week - Billing Disposition and Condition Condition: STABLE Disposition: Home
[2018-11-14] MEDS ORDERED: Sulfamethox/Trimethoprim DS 800/160* TAB PO ONE (18:25)
== END 2018-11-14 18:36 | disposition home or self-care (01) ==
LOC: UCEAST 17:32
DX: N39.0 Urinary tract infection, site not specified (principal)
CPT/HCPCS: 81002; 81025; 87077; 87086; 87186; 99212; A9270-GY; G0463

== ENCOUNTER 2018-11-15 20:57 | Emergency (ER) | payer OTHER ==
[2018-11-15 21:05] VITALS: BP 93/59
== END 2018-11-15 22:57 | disposition left against medical advice (07) ==
LOC: ED 20:57
DX: N39.0 Urinary tract infection, site not specified (principal); M79.10 Myalgia, unspecified site; Z53.21 Procedure and treatment not carried out due to patient leaving prior to being seen by health care provider

== ENCOUNTER 2019-02-10 11:31 | Emergency (ER) | payer OTHER ==
[2019-02-10 11:49] VITALS: BP 120/71
[2019-02-10] MEDS ORDERED: Acetaminophen TAB* 325 MG PO ONE (12:14)
--- NOTE | 2019-02-10 12:20 | UC ---
Abdominal Pain Female HPI - HPI Summary HPI Summary: 23-year-old female with history of weeks presents with complaints of abdominal pain. Patient states that 2 days ago she was riding on a tractor with her , she woke up the next morning with upper abdominal pain. States today the pain is more diffuse. Describes the pain as sharp. Worsens with movement especially when sitting up or laying down. No alleviating factors. Patient reports her usual nausea with . She is presently being treated for a urinary tract infection by her [employer]MENT [employer]NAGER. Denies fever, chills , chest pain, shortness of breath, vomiting, diarrhea, cramping, or vaginal bleeding. - History of Current Complaint Chief Complaint: UCAbdominalPain Stated Complaint: ABD PAIN Time Seen by Provider: 02/10/19 12:01 Hx Obtained From: Patient Hx Last Menstrual Period: [id number] Pain Intensity: 8 Allergies/Adverse Reactions: Allergies Allergy/AdvReac Type Severity Reaction Status Date / Time bee venom protein (honey bee) Allergy Hives Verified 02/10/19 11:49 Home Medications: Home Medications Nitrofurantoin Macrocrystal [Nitrofurantoin] 25 mg PO BID 02/10/19 [History Confirmed 02/10/19] PMH/Surg Hx/FS Hx/Imm Hx Previously Healthy: Yes - Denies significant PMH - Surgical History Surgical History: Yes Surgery Procedure, Year, and Place: ear tubes - Family History Known Family History: Positive: Non-Contributory - Social History Occupation: Employed Full-time Lives: With Family Alcohol Use: None Substance Use Type: None Smoking Status (MU): Never Smoked Tobacco - Immunization History Most Recent Influenza Vaccination: 02/16/17 Most Recent Pneumonia Vaccination: Unknown Review of Systems All Other Systems Reviewed And Are Negative: Yes Constitutional: Negative: Fever, Chills Respiratory: Negative: Shortness Of Breath, Cough Cardiovascular: Negative: Palpitations, Chest Pain Gastrointestinal: Positive: Abdominal Pain, Nausea. Negative: Vomiting, Diarrhea Genitourinary: Negative: Dysuria, Hematuria, Frequency, Urgency, Abnormal Bleeding Motor: Negative: Weakness Neurovascular: Negative: Decreased Sensation Neurological: Positive: Negative Is Patient Immunocompromised?: No Physical Exam - Summary Physical Exam Summary: GENERAL APPEARANCE: Well developed, well nourished, alert and cooperative, and appears to be in no acute distress. CARDIAC: Normal S1 and S2. No S3, S4 or murmurs. Rhythm is regular. There is no peripheral edema, cyanosis or pallor. Extremities are warm and well perfused. Capillary refill is less than 2 seconds. Peripheral pulses intact. LUNGS: Clear to auscultation without rales, rhonchi, wheezing or diminished breath sounds. ABDOMEN: Positive bowel sounds. Soft, nondistended. Mild diffuse tenderness with palpation. No guarding or rebound. No masses or hepatosplenomegally. No CVA tenderness. MUSKULOSKELETAL: ROM intact to all extremities. No joint erythema or tenderness. Normal muscular development. Normal gait. SKIN: Skin normal color, texture and turgor with no lesions or eruptions. Triage Information Reviewed: Yes Vital Signs: Initial Vital Signs Temp 97.9 F 02/10/19 11:43 Pulse 108 02/10/19 11:43 Resp 18 02/10/19 11:43 BP 120/71 02/10/19 11:43 Pulse Ox 98 02/10/19 11:43 Vital Signs Reviewed: Yes Abd Pain Female Course/Dx - Course Course Of Treatment: 23-year-old female with history of weeks presents with complaints of abdominal pain. Patient states that 2 days ago she was riding on a tractor with her , she woke up the next morning with upper abdominal pain. States today the pain is more diffuse. Describes the pain as sharp. Worsens with movement especially when sitting up or laying down. No alleviating factors. Patient reports her usual nausea with . She is presently being treated for a urinary tract infection by her [employer] MANAGER. Denies fever, chills , chest pain, shortness of breath, vomiting, diarrhea, cramping, or vaginal bleeding. Afebrile. Vital signs stable. Patient had soft, nondistended abdomen with mild diffuse tenderness with palpation. No guarding or rebound. No masses or hepatosplenomegally. No CVA tenderness. Remainder of exam was unremarkable. I discussed with the patient that based on her history and physical as suspect that her pain is most likely some abdominal muscle strain. I did explain that I cannot fully exclude other causes at this time however I have a very low suspicion for a serious cause. Patient was given a dose of acetaminophen in the clinic for pain. Recommending conservative treatment for muscle strain. She is to follow-up with her primary care or [employer] MANAGER in 2 days if symptoms persist. Anticipatory guidance and warning symptoms requiring immediate evaluation in the emergency room were reviewed with the patient. Verbalizes understanding and agrees with plan of care. - Differential Dx/Diagnosis Differential Diagnosis: Appendicitis, Ectopic , Gall Bladder Disease, Ovarian Cyst, Peptic Ulcer Disease, , Urinary Tract Infection Provider Diagnosis: Abdominal muscle strain Discharge ED - Sign-Out/Discharge Documenting (check all that apply): Patient Departure All imaging exams completed and their final reports reviewed: No Studies - Discharge Plan Condition: Stable Disposition: HOME Patient Education Materials: Muscle Strain (ED) Referrals: No Primary Care Phys,NOPCP [Primary Care Provider] - Additional Instructions: Based on your history and exam I suspect that your pain is from an abdominal muscle strain. I cannot fully rule out other causes but have very low suspicion at this time for anything serious. Take acetaminophen (Tylenol) according directions as needed for pain. Use a heating pad for 15-20 minutes at least 4 times a day to help with the pain and to relax the muscles. Follow-up with your primary care provider or EX[employer] TRA[employer]MENT MANAGER in 2-3 days if symptoms are not improving. Seek immediate medical attention in the emergency room if you develop fever greater than 100.5 F, have worsening abdominal pain, persistent vomiting, blood in your emesis or bowel movements, vaginal bleeding, or any worsening of symptoms. - Billing Disposition and Condition Condition: STABLE Disposition: Home - Attestation Statements Provider Attestation: Per institutional requirements, I have reviewed the chart, however, I was not consulted specifically or made aware of this patient by the midlevel provider. I did not personally evaluate, interact with , or disposition this patient.
== END 2019-02-10 12:32 | disposition home or self-care (01) ==
LOC: UCEAST 11:31
DX: O9A.219 Injury, poisoning and certain other consequences of external causes complicating pregnancy, unspecified trimester (principal); O23.40 Unspecified infection of urinary tract in pregnancy, unspecified trimester; O99.89 Other specified diseases and conditions complicating pregnancy, childbirth and the puerperium; S39.011A Strain of muscle, fascia and tendon of abdomen, initial encounter; R11.0 Nausea; Z91.030 Bee allergy status; X58.XXXA Exposure to other specified factors, initial encounter; Y93.I9 Activity, other involving external motion; Y92.9 Unspecified place or not applicable
CPT/HCPCS: 99212; A9270-GY; G0463

== ENCOUNTER 2019-05-18 19:57 | Emergency (ER) | payer OTHER ==
[2019-05-18 20:20] VITALS: BP 131/77
--- NOTE | 2019-05-18 21:40 | UC ---
Lower Extremity/Ankle HPI - HPI Summary HPI Summary: 23-year-old female 26 weeks presents with concerns for 2 areas of painless bruising to her left lower leg. No known injury. Patient states that she noticed that she had some swollen veins in the area of bruising. Denies calf pain, leg swelling, chest pain, or shortness of breath. - History of Current Complaint Chief Complaint: UCLowerExtremity Stated Complaint: LUMPS ON LEFT LEG Time Seen by Provider: 05/18/19 21:04 Hx Obtained From: Patient Hx Last Menstrual Period: Pain Intensity: 8 - Allergies/Home Medications Allergies/Adverse Reactions: Allergies Allergy/AdvReac Type Severity Reaction Status Date / Time amoxicillin Allergy Hives/Diff. Verified 05/18/19 20:21 Breathing/I tching bee venom protein (honey bee) Allergy Hives Verified 05/18/19 20:21 Home Medications: Home Medications NK [No Home Medications Reported] 05/18/19 [History Confirmed 05/18/19] PMH/Surg Hx/FS Hx/Imm Hx Previously Healthy: Yes - Denies significant PMH - Surgical History Surgical History: Yes Surgery Procedure, Year, and Place: ear tubes, t&a - Family History Known Family History: Positive: Non-Contributory - Social History Occupation: Employed Full-time Lives: With Family Alcohol Use: None Substance Use Type: None Smoking Status (MU): Never Smoked Tobacco - Immunization History Most Recent Influenza Vaccination: 02/16/17 Most Recent Pneumonia Vaccination: Unknown Review of Systems All Other Systems Reviewed And Are Negative: Yes Constitutional: Negative: Fever, Chills Skin: Positive: Bruising - See HPI Respiratory: Negative: Shortness Of Breath Cardiovascular: Negative: Palpitations, Chest Pain Gastrointestinal: Positive: Negative Genitourinary: Positive: Negative Musculoskeletal: Negative: Calf Tenderness, Edema Neurological: Positive: Negative Is Patient Immunocompromised?: No Physical Exam - Summary Physical Exam Summary: GENERAL APPEARANCE: Well developed, well nourished, alert and cooperative, and appears to be in no acute distress. CARDIAC: Normal S1 and S2. No S3, S4 or murmurs. Rhythm is regular. There is no peripheral edema, cyanosis or pallor. Extremities are warm and well perfused. Capillary refill is less than 2 seconds. Peripheral pulses intact. LUNGS: Clear to auscultation without rales, rhonchi, wheezing or diminished breath sounds. ABDOMEN: Positive bowel sounds. Soft, nondistended, nontender. No guarding or rebound. No masses or hepatosplenomegally. MUSKULOSKELETAL: ROM intact to all extremities. No joint erythema or tenderness. Normal muscular development. Normal gait. EXTREMITIES: Multiple varicosities of the bilateral lower extremities. Two circular areas of nontender eccymosis measuring 3 cm and 2 cm respectively each overlying a soft non-tender varicose veins. No erythema or increased warmth. SKIN: Skin normal color, texture and turgor. Triage Information Reviewed: Yes Vital Signs: Initial Vital Signs Temp 97.9 F 05/18/19 20:16 Pulse 78 05/18/19 20:16 Resp 16 05/18/19 20:16 BP 131/77 05/18/19 20:16 Pulse Ox 100 05/18/19 20:16 Vital Signs Reviewed: Yes Lower Extremity Course/Dx - Course Course Of Treatment: 23-year-old female 26 weeks presents with concerns for 2 areas of painless bruising to her left lower leg. No known injury. Patient states that she noticed that she had some swollen veins in the area of bruising. Denies calf pain, leg swelling, chest pain, or shortness of breath. Afebrile. Vital signs stable. Patient had multiple varicosities of the bilateral lower extremities. Two circular areas of nontender eccymosis measuring 3 cm and 2 cm respectively each overlying a soft non-tender varicose veins. No erythema or increased warmth. Discussed with patient that her symptoms were consistent with ruptured varicose veins that were benign and should resolve without complication. Recommending conservative treatment at this time. She is to follow-up with her primary care provider as needed. Anticipatory guidance and warning symptoms were reviewed with the patient. Verbalized understanding and agrees with plan of care. - Differential Dx/Diagnosis Differential Diagnosis/HQI/PQRI: Contusion, DVT, Phlebitis Provider Diagnosis: Asymptomatic ruptured varicose vein of left lower extremity Discharge ED - Sign-Out/Discharge Documenting (check all that apply): Patient Departure All imaging exams completed and their final reports reviewed: No Studies - Discharge Plan Condition: Stable Disposition: HOME Referrals: Damien Terrazas MD [Primary Care Provider] - Additional Instructions: The bruised areas on your left lower leg are consistent with a ruptured varicose vein. These are benign and will resolve on their own. You can apply some heat to the effected area for 15-20 minutes 3-4 times a day. Take acetaminophen (Tylenol) according to directions for any discomfort. Follow-up with your primary care provider as needed. Seek immediate medical attention if you develop a fever greater than 100.5 F, there is redness that rapidly spreads, severe pain that is not managed with over -the-counter acetaminophen, you have pain in the calf, swelling of the lower leg , chest pain, shortness of breath, or any worsening of symptoms. - Billing Disposition and Condition Condition: STABLE Disposition: Home
== END 2019-05-18 21:35 | disposition home or self-care (01) ==
LOC: UCEAST 19:57
DX: O22.02 Varicose veins of lower extremity in pregnancy, second trimester (principal); Z3A.26 26 weeks gestation of pregnancy; Z88.0 Allergy status to penicillin; Z91.030 Bee allergy status
CPT/HCPCS: 99211; G0463

== ENCOUNTER 2019-05-28 20:38 | Emergency (ER) | payer OTHER ==
[2019-05-28 21:02] VITALS: BP 105/63
[2019-05-28 21:47] LABS: Influenza B Molecular POSITIVE (Negative)
[2019-05-28] MEDS ORDERED: Oseltamivir CAP* 75 MG CAP PO ONE (22:00)
--- NOTE | 2019-05-28 22:18 | UC ---
FLU HPI - HPI Summary HPI Summary: 23-year-old female presenting at 27 weeks for nasal congestion, sore throat, and dry cough since last night. Patient states she woke up and thought she just had a postnasal drip but she continued to develop symptoms today. Denies shortness of breath and wheezing. Denies nausea and vomiting. Denies known fevers. Denies chills. Denies taking anything for symptom relief. Normal appetite and fluid intake. - History of Current Complaint Chief Complaint: UCRespiratory Stated Complaint: SORE THROAT Hx Obtained From: Patient Hx Last Menstrual Period: Pain Intensity: 7 Pain Scale Used: 0-10 Numeric - Allergy/Home Medications Allergies/Adverse Reactions: Allergies Allergy/AdvReac Type Severity Reaction Status Date / Time amoxicillin Allergy Hives/Diff. Verified 05/28/19 20:59 Breathing/I tching bee venom protein (honey bee) Allergy Hives Verified 05/28/19 20:59 PMH/Surg Hx/FS Hx/Imm Hx Previously Healthy: Yes - Surgical History Surgical History: Yes Surgery Procedure, Year, and Place: ear tubes, t&a - Family History Known Family History: Positive: Non-Contributory Negative: Cardiac Disease, Hypertension - Social History Alcohol Use: None Substance Use Type: None Smoking Status (MU): Never Smoked Tobacco - Immunization History Most Recent Influenza Vaccination: 02/16/17 Most Recent Pneumonia Vaccination: Unknown Review of Systems All Other Systems Reviewed And Are Negative: Yes Constitutional: Positive: Negative ENT: Positive: Sore Throat, Nasal Discharge - PND, Sinus Congestion Respiratory: Positive: Cough - Nonproductive. Negative: Shortness Of Breath Cardiovascular: Positive: Negative Gastrointestinal: Positive: Negative Musculoskeletal: Positive: Negative Neurological/Mental Status: Positive: Negative Physical Exam - Summary Physical Exam Summary: Vital Signs Reviewed: Yes A+Ox3, no distress, well-appearing Eyes: Conjunctiva Clear ENT: Hearing grossly normal, TM x 2 clear, +PND, moist, uvula midline, no exudate, +pharyngeal erythema Neck: Positive: Supple Respiratory: Positive: No respiratory distress, No accessory muscle use + CTA throughout no w/r Cardiovascular: RRR nl s1, s2 no m/r Musculoskeletal Exam: HERNANDEZ x 4 without difficulty Neurological: Positive: Alert Psychological: Positive: age appropriate behavior Skin: Positive: no rash, no ecchymosis Vital Signs: Initial Vital Signs Temp 97.9 F 02/15/20 20:57 Pulse 96 05/28/19 20:57 Resp 18 05/28/19 20:57 BP 105/63 05/28/19 20:57 Pulse Ox 100 05/28/19 20:57 Lab Results 05/28/19 05/28/19 Range/Units 21:41 21:43 Influenza B (Rapid) Positive H (Negative) Group A Strep Rapid Negative (Negative) Flu Course/Dx - Course Course Of Treatment: Positive influenza B. Negative strep test. I treated patient with Tamiflu and instructed to continue with symptomatic treatment. Instructed to follow up with pcp for any new or worsening symptoms. Patient voiced understanding and agreed with treatment plan. - Differential Dx/Diagnosis Provider Diagnosis: Influenza B Discharge ED - Sign-Out/Discharge Documenting (check all that apply): Patient Departure All imaging exams completed and their final reports reviewed: No Studies - Discharge Plan Condition: Stable Disposition: HOME Prescriptions: Oseltamivir CAP* [Tamiflu CAP*] 75 mg PO BID #9 cap Patient Education Materials: Influenza (ED) Referrals: Damien Terrazas MD [Primary Care Provider] - If Needed Additional Instructions: As discussed, you tested positive for influenza today. Take tamiflu twice daily for 5 days. You received the first dose tonight. You may take tylenol for fever and pain relief. Do not take any ibuprofen or other NSAIDs. Get plenty of rest and increase your fluid intake. Follow up with your primary care provider if symptoms worsen or do not resolve within 5-7 days. - Billing Disposition and Condition Condition: STABLE Disposition: Home
== END 2019-05-28 22:10 | disposition home or self-care (01) ==
LOC: UCEAST 20:38
DX: O99.512 Diseases of the respiratory system complicating pregnancy, second trimester (principal); J10.1 Influenza due to other identified influenza virus with other respiratory manifestations; Z3A.27 27 weeks gestation of pregnancy; Z88.0 Allergy status to penicillin; Z91.030 Bee allergy status
CPT/HCPCS: 87651; 99211; A9270-GY; G0463

== ENCOUNTER 2019-06-01 13:39 | Emergency (ER) | payer OTHER ==
[2019-06-01] MEDS ORDERED: NS 0.9% 1000 ML** 1,000 ML IV ONE ×2 (14:02→14:56)
[2019-06-01] MEDS ORDERED: Acetaminophen TAB* 325 MG PO ONE (14:02)
--- NOTE | 2019-06-01 14:15 | UC ---
FLU HPI - HPI Summary HPI Summary: 23 yo female presents with fever. She is currently 28 weeks . She tells me that on 05/28 she was diagnosed with the flu. Since that time she has had daily fevers and feeling increased body aches and back pain. She has been taking tylenol for her symptoms with little relief. Last dose was around 0800 today. Currently she feels fatigued, b/l lower extremity "burning" and pain, back pain, and generally unwell. She has not had much of an appetite, but denies vomiting or diarrhea. No abdominal pain, SOB, or chest pain. - History of Current Complaint Chief Complaint: UCRespiratory Stated Complaint: FLU LIKE SYMPTOMS AND LEG PAIN Time Seen by Provider: 06/01/19 14:14 Hx Obtained From: Patient Hx Last Menstrual Period: mid november Onset/Duration: Gradual Onset Severity Currently: Severe Severity Initially: Severe Pain Intensity: 9 Pain Scale Used: 0-10 Numeric - Allergy/Home Medications Allergies/Adverse Reactions: Allergies Allergy/AdvReac Type Severity Reaction Status Date / Time amoxicillin Allergy Hives/Diff. Verified 06/01/19 15:57 Breathing/I tching bee venom protein (honey bee) Allergy Hives Verified 06/01/19 15:57 Home Medications: Home Medications Oseltamivir CAP* [Tamiflu CAP*] 75 mg PO BID #9 cap 05/28/19 [Rx Confirmed 06/01] Ferrous Gluconate TAB* [Fergon TAB*] 325 mg PO DAILY 06/01/19 [History Confirmed 06/01/19] PMH/Surg Hx/FS Hx/Imm Hx - Additional Past Medical History Additional PMH: Anemia - Surgical History Surgical History: Yes Surgery Procedure, Year, and Place: ear tubes, t&a. left breast cellulitis drainage - Family History Known Family History: Positive: Non-Contributory Negative: Cardiac Disease, Hypertension - Social History Lives: With Family Alcohol Use: None Substance Use Type: None Smoking Status (MU): Never Smoked Tobacco - Immunization History Most Recent Influenza Vaccination: 02/16/17 Most Recent Pneumonia Vaccination: Unknown Review of Systems All Other Systems Reviewed And Are Negative: No Constitutional: Positive: Fever, Fatigue, Other - Body aches Skin: Positive: Negative Eyes: Positive: Negative ENT: Positive: Negative Respiratory: Positive: Negative Cardiovascular: Positive: Negative Gastrointestinal: Positive: Negative Genitourinary: Positive: Negative Motor: Positive: Negative Neurovascular: Positive: Negative Musculoskeletal: Positive: Other: - Back pain. Leg pain Neurological/Mental Status: Positive: Negative Psychological: Positive: Negative Physical Exam - Summary Physical Exam Summary: GENERAL: Ill appearing. Tearful at times. SKIN: No rashes, sores, or open wounds. HEENT: Head: AT/NC Eyes: PERRLA. EOM intact. Conjunctiva clear without inflammation or discharge. Ears: Hearing grossly normal. TMs intact, no bulging, erythema, or edema. Nose: Nasal mucosa pink and moist. NTTP maxillary and frontal sinus. Throat: Posterior oropharynx without exudates, erythema, or tonsillar enlargement. Uvula midline. NECK: Supple. Nontender. No lymphadenopathy. CHEST: CTAB. No r/r/w. No accessory muscle use. Breathing comfortably and in no distress. CV: Tachycardic. Pulses intact. Brisk cap refill. ABDOMEN: Soft. NTTP. Moderate b/l CVA tenderness. Bowel sounds present MSK: FROM and 5/5 strength throughout. No edema. NEURO: Alert. PSYCH: Age appropriate behavior. Triage Information Reviewed: Yes Vital Signs: Initial Vital Signs Temp 104.4 F 06/01/19 13:53 Pulse 137 06/01/19 13:53 Resp 20 06/01/19 13:53 BP 109/45 06/01/19 13:53 Pulse Ox 100 06/01/19 13:53 Laboratory Tests 06/01/19 14:57 POC Urine Color Dark yellow POC Urine Clarity Turbid POC Urine pH 6.0 POC Ur Specif [place] 1.025 POC Urine Protein 3+ A POC Ur Glucose (UA) Trace A POC Urine Ketones 3+ A POC Urine Blood 2+ A POC Urine Nitrite Positive A POC Urine Bilirubin 1+ A POC Urine Urobilinogen 2.0 A POC U Leukocyte Esteras 3+ A Vital Signs (72 hours) 06/01/19 06/01/19 06/01/19 13:53 14:59 15:11 Temperature 104.4 F 103.1 F 103.5 F Pulse Rate 137 120 Respiratory 20 24 Rate Blood Pressure 109/45 116/36 (mmHg) O2 Sat by Pulse 100 98 Oximetry Vital Signs Reviewed: Yes Flu Course/Dx - Course Course Of Treatment: In the clinic heart tones were 164 and baby was active. Pt was given 1gm of tylenol po and 1L NS and here fever reduced to 103F --- she did not feel any better. UA was obtained and was grossly positive. Meets sepsis criteria and recommend transfer to ED. Pt was agreeable with this. POC glucose 109. Left via stable condition via EMS. Report called to Zachariah AGUILAR in ED. - Differential Dx/Diagnosis Provider Diagnosis: Pyelonephritis, Influenza, Sepsis Discharge ED - Sign-Out/Discharge Documenting (check all that apply): Patient Departure All imaging exams completed and their final reports reviewed: No Studies - Discharge Plan Condition: Stable Disposition: TRANS HIGHER LVL OF CARE FAC Referrals: Damien Terrazas MD [Primary Care Provider] - - Billing Disposition and Condition Condition: STABLE Disposition: Trans Higher Lvl of Care Fac
[2019-06-01 15:12] VITALS: BP 116/36
== END 2019-06-01 15:25 | disposition short-term general hospital (02) ==
LOC: UCEAST 13:39
DX: O98.813 Other maternal infectious and parasitic diseases complicating pregnancy, third trimester (principal); O99.513 Diseases of the respiratory system complicating pregnancy, third trimester; A41.89 Other specified sepsis; J11.1 Influenza due to unidentified influenza virus with other respiratory manifestations; N12 Tubulo-interstitial nephritis, not specified as acute or chronic; Z3A.28 28 weeks gestation of pregnancy; Z88.0 Allergy status to penicillin; Z91.030 Bee allergy status
CPT/HCPCS: 81003; 96360; 96361; 99213; A9270-GY; G0463

== ENCOUNTER 2019-06-01 15:47 | Inpatient (IN) | payer OTHER ==
--- NOTE | 2019-06-01 16:01 | ED ---
Sepsis HPI - HPI Summary HPI Summary: This pt is a 23 Y/O F presenting to [facility] from with a CC of sepsis due to influenza as diagnosed by . She was seen at earlier this week and was diagnosed with Influenza. She states that she has had the symptoms since 2019 and are steadily getting worse. She states that she has a fever of 103.1F, fatigue, SOB, headaches, dysuria, myalgia, and a sore throat. Her bilateral flank pain is rated a 5/10 on severity. She states that she has a Hx of pyelonephritis with . She denies any alleviating factors. She has a GPA of 2,1,0. She stats no aggravating or alleviating factors. - History of Current Complaint Chief Complaint: EDFever Time Seen by Provider: 06/01/19 15:53 Stated Complaint: SEPSIS PER EMS Hx Obtained From: Patient, EMS Hx Last Menstrual Period: mid november Onset/Duration: Started Days Ago - 5, Still Present Timing: Constant, Lasting Days Onset Severity: Moderate Current Severity: Moderate Pain Intensity: 5 Pain Scale Used: 0-10 Numeric Aggravating Symptom(s): Nothing Alleviating Factor(s): Nothing Associated Signs & Symptoms: Headache, Sore Throat, Dysuria, Other - POSITIVE: fever, fatigue, SOB, bilateral flank pain - Allergy/Home Medications Allergies/Adverse Reactions: Allergies Allergy/AdvReac Type Severity Reaction Status Date / Time amoxicillin Allergy Hives/Diff. Verified 06/01/19 15:57 Breathing/I tching bee venom protein (honey bee) Allergy Hives Verified 06/01/19 15:57 Home Medications: Home Medications Oseltamivir CAP* [Tamiflu CAP*] 75 mg PO BID #9 cap 05/28/19 [Rx Confirmed 06/01] Ferrous Gluconate TAB* [Fergon TAB*] 325 mg PO DAILY 06/01/19 [History Confirmed 06/01/19] PMH/Surg Hx/FS Hx/Imm Hx Previously Healthy: Yes Endocrine/Hematology History: Denies: Hx Diabetes Cardiovascular History: Denies: Hx Hypertension - Cancer History Hx Chemotherapy: No Hx Radiation Therapy: No - Surgical History Surgical History: Yes Surgery Procedure, Year, and Place: ear tubes, t&a. left breast cellulitis drainage - Immunization History Immunizations Up to Date: Yes Infectious Disease History: Denies: Hx Clostridium Difficile, Hx Hepatitis, Hx Human Immunodeficiency Virus (HIV), Hx of Known/Suspected MRSA, Hx Shingles, Hx Tuberculosis, Hx Known/ Suspected VRE, Hx Known/Suspected VRSA, History Other Infectious Disease - Family History Known Family History: Negative: Cardiac Disease, Hypertension - Social History Occupation: Employed Full-time Lives: With Family Alcohol Use: None Hx Substance Use: No Substance Use Type: Reports: None Hx Tobacco Use: No Smoking Status (MU): Never Smoked Tobacco Review of Systems Positive: Fever - 103.1 F, Fatigue Positive: Shortness Of Breath Positive: dysuria, flank pain - bilateral Positive: Headache All Other Systems Reviewed And Are Negative: Yes Physical Exam - Summary Physical Exam Summary: Constitutional: Well-developed, Well-nourished, Alert. (-) Distressed Skin: Warm, Dry HENT: Normocephalic; Atraumatic Eyes: Conjunctiva normal Neck: Musculoskeletal ROM normal neck. (-) JVD, (-) Stridor, (-) Nuchal rigidity Cardio: Rhythm regular, rate Tachycardic, Heart sounds normal; Intact distal pulses; Radial pulses are 2+ and symmetric. (-) Murmur Pulmonary/Chest wall: Effort normal. (-) Respiratory distress, (-) Wheezes, (-) Rales Abd: Soft, (-) tenderness, (-) Distension, (-) Guarding, (-) Rebound, Gravid uterus. Bilteral flank tenderness, Musculoskeletal: (-) Edema Neuro: Alert, Oriented x3 Psych: Mood and affect Normal GPA: 2,1,0 Triage Information Reviewed: Yes Vital Signs On Initial Exam: Temp Pulse Resp BP SpO2 FiO2 99.5 F 118 24 91/50 97 06/01/19 15:53 06/01/19 15:53 06/01/19 15:53 06/01/19 15:53 06/01/19 15:53 Vital Signs Reviewed: Yes Procedures - Sedation Patient Received Moderate/Deep Sedation with Procedure: No Diagnostics - Laboratory Result Diagrams: 06/01/19 16:08 06/01/19 16:08 Lab Statement: Any lab studies that have been ordered have been reviewed, and results considered in the medical decision making process. - Radiology CXR Radiology Interpretation Completed By: Radiologist Summary of Radiographic Findings: NO ACTIVE CARDIOPULMONARY DISEASE IS NOTED. ED physician has reviewed this report. Sepsis Re-assessment - Sepsis Re-Assessment First Eval Patient's Vitals Signs: Vital Signs Temp Pulse Resp BP Pulse Ox 06/01/19 15:53 99.5 F 118 24 91/50 97 Course/Dx - Course Course Of Treatment: 23 y/o F at 28 weeks p/w fevers chills and dysuria. - Physical exam of the well-appearing female, bilateral flank tenderness. Tachycardic. - Patient is status post 2 L of IV fluids urgent care, given her an additional third liter here to cover for 30 cc/kg for sepsis. Patient given 1 g of ceftriaxone. Lactic acid normal. Blood pressure soft. Fourth liter deferred at the request of OB would like to run her on gentle fluids given risk of pulmonary edema in . UA w 3+ LE, CXR neg. Suspect pyelo. Admit to OB. Already on tamiflu for flu. - Differential Dx/Clinical Impression Provider Diagnosis: Pyelonephritis, , Sepsis, Hypokalemia - Provider Notifications Discussed Care Of Patient With: Erik Segura JR Instructed by Provider To: Admit As Inpatient Admit/Transition Orders Completed By ED Provider: Yes Discharge ED - Sign-Out/Discharge Documenting (check all that apply): Patient Departure - Discharge Plan Condition: Stable Disposition: ADMITTED TO [facility] Referrals: Damien Terrazas MD [Primary Care Provider] - - Billing Disposition and Condition Condition: STABLE Disposition: Admitted to [facility] - Attestation Statements Document Initiated by Scribe: Yes Documenting Scribe: Adonay Kenney Provider For Whom Gail is Documenting (Include Credential): Camille Greenfield MD Scribe Attestation: Adonay Ro, scribed for Camille Greenfield MD on 06/01/19 at 1740. Scribe Documentation Reviewed: Yes Provider Attestation: The documentation as recorded by the Adonay duenas accurately reflects the service I personally performed and the decisions made by , Camille Greenfield MD Status of Scribe Document: Viewed Consult Consult: The pharmacy agreed w using Ceftriaxone at 1600 due to her Amoxicillin allergy.
[2019-06-01] MEDS ORDERED: NS 0.9% 1000 ML** 1,000 ML IV ONE ×2 (16:02→16:57)
[2019-06-01] MEDS ORDERED: cefTRIAXone(*) 1 GM in NS 0.9% 50 ML* 50 ML IVPB ONE (16:02)
[2019-06-01 16:24] LABS: ABS Lymphocytes 0.9 10^3/ul (1.0-4.8); ABS Monocytes 0.9 10^3/ul (0-0.8); ABS Neutrophils 12.5 10^3/ul (1.5-7.7); Eosinophil % 0.1 %; Hematocrit 27 % (35-47); Hemoglobin 9.7 g/dL (12.0-16.0); Mean Corpuscular HGB Conc 36 g/dL (31-36); Mean Corpuscular Hemoglobin 31 pg (27-31); Mean Corpuscular Volume 88 fL (80-97); Mean Platelet Volume 8.2 fL (7.4-10.4); Platelet Count 146 10^3/uL (150-450); Red Blood Count 3.09 10^6 /uL (3.70-4.87); Red Cell Distribution Width 14 % (10-15); White Blood Count 14.2 10^3/uL (3.5-10.8)
[2019-06-01] MEDS ORDERED: oxyCODONE/Acetamin 5/325 MG* TAB PO ONE (16:41)
[2019-06-01 16:42] LABS: Activated Partial Thrombo Time 30.4 seconds (26.0-38.0); INR 1.29 (0.82-1.09)
[2019-06-01 16:47] LABS: Albumin 2.9 g/dL (3.2-5.2); Albumin/Globulin Ratio 1.2 (1-3); BUN/Creatinine Ratio 7.7 (8-20); Calcium 6.9 mg/dL (8.6-10.3); EGFR African American 139.2 (>60); EGFR Non-African American 115.1 (>60); Globulin 2.5 g/dL (2-4); Total Bilirubin 0.7 mg/dL (0.2-1.0); Total Protein 5.4 g/dL (6.4-8.9)
[2019-06-01] MEDS ORDERED: Potassium Chlor TAB* 20 MEQ TAB.ER PO ONE ×2 (16:55→18:52)
[2019-06-01 17:07] LABS: Urine Appearance Cloudy; Urine Bilirubin Negative (Negative); Urine Blood 1+ (Negative); Urine Color Yellow; Urine Glucose Negative (Negative); Urine Ketones 1+ (Negative); Urine Nitrite Positive (Negative); Urine Protein 2+(100 mg/dL) (Negative); Urine Specific Gravity 1.008 (1.010-1.030); Urine Urobilinogen Negative (Negative)
[2019-06-01 17:08] LABS: Urine Bacteria 1+ (Absent); Urine Red Blood Cell 2+(6-10/hpf) (Absent); Urine Squamous Epithelial Cell Present (Absent); Urine White Blood Cell 3+(>20/hpf) (Absent)
[2019-06-01] MEDS ORDERED: Acetaminophen TAB* 325 MG PO PRN (17:36)
[2019-06-01] MEDS ORDERED: oxyCODONE/Acetamin 5/325 MG* TAB PO PRN (17:36)
[2019-06-01] MEDS: NS 0.9% 1000 ML** 1,000 ML IV SCH ×2 (19:46→23:50)
[2019-06-01] MEDS: Oseltamivir CAP* 75 MG CAP PO SCH (19:51)
--- NOTE | 2019-06-01 19:57 | CONS ---
CC: Damien Terrazas MD; Dr. Jj Caballero; Erik Segura DO * CONSULTATION REPORT: DATE OF CONSULT: 06/01/19 PRIMARY CARE PROVIDER: Damien Terrazas MD ATTENDING PHYSICIAN: Dr. Jj Caballero (dictated by JEFF Palmer). REQUESTING PHYSICIAN IN CONSULTATION: Erik Segura DO REASON FOR CONSULTATION: Co-medical management. HISTORY OF PRESENT ILLNESS: Ms. Sweet is a 23-year-old female with a past medical history of pyelonephritis with past and recent diagnosis of flu, who presented to the ER today with complaints of general malaise, fever, bilateral lower extremity and back pain. The patient reports that she was diagnosed with influenza on Thursday and began Tamiflu at that time, taking 75 p.o. b.i.d. She has taken 5 out of 10 doses. She reports continued fever with a T-max of 104. She also reports cough, chills, sweats. She has nausea that she believes is due to pain in the lower extremities and back in the mid lumbar area. She also complains of occasional dizziness/lightheadedness. She has some mild dysuria without frequency, urgency, retention or hematuria. She denies flank pain. She is currently 28 weeks . In the ER, she was diagnosed with urinary tract infection with suspected pyelonephritis and she is being admitted by Dr. Segura of the [facility] service. Hospitalist team was asked to co-manage. PAST MEDICAL HISTORY: 1. Iron deficiency anemia. 2. History of pyelonephritis with past . PAST SURGICAL HISTORY: Bilateral ear tubes, adenoids, left breast abscess. HOME MEDICATIONS: 1. Ferrous gluconate 325 mg p.o. daily. 2. Oseltamivir 75 mg p.o. b.i.d. DRUG ALLERGIES: AMOXICILLIN, BEE VENOM. FAMILY HISTORY: Mother had a history of pancreatic cancer, diabetes. Paternal grandmother with breast cancer. Maternal grandfather with prostate cancer. No family history of heart disease, CVA. SOCIAL HISTORY: The patient denies current or former use of tobacco. She does not use alcohol or illicit drug. She is with 1 child and is currently . 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 She lives with her spouse and child. In the event that she is unable to make her own medical decisions, she has appointed her mother, Maris Sweet, , to be her surrogate decision maker. REVIEW OF SYSTEMS: A 14-point review of systems has been performed and all the pertinent positives and negatives are in the HPI. All other systems are negative. PHYSICAL EXAM: General: Ms. Sweet is a well-developed, well-nourished, young white female who is sitting up in bed. She is . She appears mildly acutely ill. HEENT: PERRL. EOMI. Visual moralez are grossly intact. Sclerae are without icterus or injection. Hearing is grossly intact. Oral mucous membranes are moist. There are no lesions. The pharynx is clear. The tongue is at midline. Palate elevates symmetrically. Cardiovascular: Regular rate and rhythm with S1, S2 present. No murmurs, rubs, clicks, or gallops. There is no JVD or peripheral edema. Pulmonary: Symmetrical chest expansion without use of accessory muscles. Clear to auscultation bilaterally without rhonchi, wheeze, or rales. Abdomen: Bowel sounds noted in all quadrants. The patient is visibly . Bilateral CVA tenderness. Musculoskeletal: Full range of motion. There is no apparent pain or deformities. Neuro: The patient is awake. She is alert and oriented x3. Cranial nerves II through XII grossly intact. DIAGNOSTIC STUDIES/LAB DATA: 1. CBC: WBC 14.2, hemoglobin 9.7, hematocrit 27, platelet count 146. INR 1.29. 2. CMP: Sodium 130, potassium 3.0, carbon dioxide 19, BUN 5, creatinine 0.65, lactic 0.7. 3. Chest x-ray, impression: No active cardiopulmonary disease is noted. ASSESSMENT AND PLAN: Ms. Sweet is a 23-year-old female with a past medical history of pyelonephritis with , recent diagnosis of influenza, who presented to the ER today with complaints of continued fever, low back pain, mild dysuria and was found to have a urinary tract infection with suspected pyelonephritis and continued influenza. The patient will be admitted for: 1. Urinary tract infection with suspected pyelonephritis. The patient presents with 3+ LE, 1+ bacteria, positive nitrites in urine. She has a history of multiple Escherichia coli urinary tract infections, which were all sensitive to ceftriaxone. She has been placed on ceftriaxone and will continue this medication throughout her stay. Blood cultures have been drawn and are pending. Urine culture is also pending. The patient has a negative lactic acid. 2. Sepsis. The patient meets sepsis criteria with tachycardia, leukocytosis. Lactic acid is negative. She received 2 L of normal saline fluid bolus and ceftriaxone. Blood cultures are pending. Suspected source is urinary tract infection. The patient will be continued on ceftriaxone. We will await blood cultures and urine culture. 3. Influenza. The patient has received 5 out of 10 doses of Tamiflu 75 b.i.d. I recommend increasing the length of her Tamiflu to 15 doses, therefore she would have 10 doses remaining. She should continue at the current dose of 75 mg p.o. b.i.d. 4. Hypokalemia. The patient has received 40 of potassium. I will order another 40 mg PO now. Recheck potassium in the a.m. 5. . Continue home ferrous gluconate. Further recommendations per Dr. Segura. 6. DVT prophylaxis: Per [facility]. 7. Code status: Full code. TIME SPENT: Approximately 40 minutes was spent on this consultation, greater than half that time was spent [id number] with the patient obtaining history, performing physical, and reviewing the plan of care. The case has been discussed with my attending, Dr. Caballero, who is in agreement with the plan of care. KRISTOPHER ESCOBAR, JEFF [id number]/[facility] #: [id number] MER
--- NOTE | 2019-06-01 20:25 | HP ---
History of Present Illness - History of Present Illness Reason for Visit: at 28 weeks, suspected sepsis, Influenza, Pyelonephritis History of Present Illness: Pt is a at 28w0d who initially presented to Urgent Care this afternoon with fever of 103.1, fatigue, SOB, RUSSO, dysuria, myalgias, sore throat and bilateral flank pain. She was recently diagnosed with influenza in the outpatient setting and started on Tamiflu, which she is now on D4 of therapy. Additionally, pt has a history significant for pyelonephritis in her prior gestation, and positive UTI in this gestation. She received 2 Liters of IVF at Urgent Care and an additional liter of fluid on arrival to the ED. She exhibited hypotension and mild tachycardia on arrival to the ED. UA exhibited 3 + Leuks, + bacteria, +protein, + Nitrites, + blood. Additionally WBC was noted to have increased from 8 to 14. Lactic Acid was WNL. Ceftriaxone was administered in the ED. Pt denies any vaginal bleeding, LOF, painful or regular contractions. She reports good movement. - Past Medical History Renal/: UTI, Other - Hx of Pyelonephritis in past gestation Grav: 5 Para: 1 Ab: 3 - Past Surgical History Past Surgical History: Other - Breast Abscess at age 14, ear tubes, Tonsillectomy - Past Family History Family History: None - Past Social History Smoke: No Alcohol: None Drugs: None Lives: With Family Domestic Violence: Negative Review of Systems - Review of Systems Constitutional: Positive: Fever, Malaise ENT: Positive: Throat Pain Respiratory: Positive: Cough, Shortness of Breath Genitourinary: Positive: Dysuria Musculoskeletal: Positive: Other - myalgias Neurological/Mental Status: Positive: Other - Headache - Medications/Allergies Allergies/Adverse Reactions: Allergies Allergy/AdvReac Type Severity Reaction Status Date / Time amoxicillin Allergy Hives/Diff. Verified 06/01/19 15:57 Breathing/I tching bee venom protein (honey bee) Allergy Hives Verified 06/01/19 15:57 Medications: Current Medications Acetaminophen (Tylenol Tab*) 650 mg PO Q4H PRN PRN Reason: MILD PAIN or TEMP > 100.4 Sodium Chloride (Ns 0.9% 1000 Ml) 1,000 mls @ 125 mls/hr IV PER RATE RELL Last Admin: 06/01/19 19:46 Dose: 125 mls/hr Ceftriaxone Sodium 1 gm/ (Sodium Chloride) 50 mls @ 100 mls/hr IVPB Q24H [facility] Ondansetron HCl (Zofran Inj*) 4 mg IV Q4H PRN PRN Reason: NAUSEA/VOMITING Oseltamivir Phosphate (Tamiflu Cap*) 75 mg PO BID RELL Stop: 06/06/19 09:01 Last Admin: 06/01/19 19:51 Dose: 75 mg Oxycodone/Acetaminophen (Percocet 5/325 Tab*) 1 tab PO Q4H PRN PRN Reason: PAIN - MODERATE Exam - Exam Vital Signs: Vital Signs (72 hours) 06/01/19 06/01/19 06/01/19 15:53 15:59 16:01 Temperature 99.5 F Pulse Rate 118 116 118 Respiratory 24 22 24 Rate Blood Pressure 91/50 91/50 (mmHg) O2 Sat by Pulse 97 98 97 Oximetry 06/01/19 06/01/19 06/01/19 16:23 16:24 16:38 Temperature 99.4 F Pulse Rate 112 107 Respiratory 16 21 20 Rate Blood Pressure 106/57 89/48 100/55 (mmHg) O2 Sat by Pulse 97 96 Oximetry 06/01/19 06/01/19 06/01/19 16:57 17:00 17:08 Temperature Pulse Rate 98 103 Respiratory 22 18 16 Rate Blood Pressure 104/54 (mmHg) O2 Sat by Pulse 97 97 Oximetry 06/01/19 06/01/19 06/01/19 17:23 17:38 17:53 Temperature Pulse Rate 102 100 91 Respiratory 26 18 19 Rate Blood Pressure 101/59 103/53 101/62 (mmHg) O2 Sat by Pulse 98 98 98 Oximetry 06/01/19 06/01/19 06/01/19 18:00 18:08 18:57 Temperature Pulse Rate 89 88 89 Respiratory 18 18 17 Rate Blood Pressure 103/60 102/55 (mmHg) O2 Sat by Pulse 97 98 97 Oximetry 06/01/19 06/01/19 19:12 19:20 Temperature 99.4 F 98.6 F Pulse Rate 108 94 Respiratory 24 20 Rate Blood Pressure 89/48 100/45 (mmHg) O2 Sat by Pulse 96 99 Oximetry General: Alert, Oriented x3, Cooperative HEENT: Atraumatic Lungs: Clear to auscultation, Normal air movement Cardiovascular: Regular rate Abdomen: Soft, No tenderness, Other - Gravid, nttp, no fundal tenderness Extremities: No edema, No tenderness/swelling Skin: No rashes Psych/Mental Status: Mental status NL Assessment/Plan - Assessment/Plan Assessment: 23 y/o at 28 weeks recently diagnosed with influenza, now with suspected Pyelonephritis CXR is negative for cardiopulmonary findings Lactic Acid is WNL Responsive to IVF boluses status appears stable, pt does not appear to be in pre-term labor, reports good FM NST with baseline of 120bpm, moderate variability, + accels, no decels Pt is not maria del carmen Plan: Consult IM to assist in management of sepsis, treatment of influenza and pyelonephritis Ucx and Blood Cultures pending Will repeat CBC and Chem in AM Has received 3 Liters in bolus will give IVF at 125ml/hr, caution to not overload given , pyelonephritis risk of ARDS Will continue Ceftriaxone q 24 hours Will continue Tamiflu BID Tylenol PRN for fever and mild pain Pt will remain on Tele for close observation to determine if she needs escalated level of care in ICU NST q Shift
[2019-06-01] MEDS ORDERED: Oseltamivir CAP* 75 MG CAP PO SCH ×2 (21:00)
[2019-06-01] MEDS ORDERED: NS 0.9% 500 ML* 500 ML IV ONE (23:36)
[2019-06-01] MEDS ORDERED: Acetaminophen TAB* 325 MG PO ONE (23:39)
[2019-06-02] MEDS: NS 0.9% 1000 ML** 1,000 ML IV SCH ×6 (01:26→23:52)
[2019-06-02] MEDS: Ondansetron INJ* 2 MG/ML VIAL IV PRN ×4 (02:18→20:27)
--- NOTE | 2019-06-02 02:50 | PN ---
Progress Note - Progress Note Date of Service: 06/02/19 Note: Pt spiked temperature to 104.8 also exhibited tachycardia at this time. EKG with sinus Tach. Reviewed patient with Medicine PA, pt had just received Tylenol 650mg, recomended give remainder of dose to total of 975mg. Also received additional IVF bolus of 500ml and maintenance IVF increased to 250ml/hr. Pt eventually defferevesced to 98.6F approximaately 1.5 hours after complete tylenol dosage. Placed back on NST, initially with baseline in the 160's while febrile, ultimately settled to a baseline of 155 with moderate variability, + accelerations, no decelerations. No contractions. Low suspicion for PTL. Negative fundal or abdominal tenderness on exam. Ok to come off monitor, continue q shift NST. Continue care as outlined previously. Continue IVF at 250ml/hr, will likely decrease in AM, pt with UOP just now picking up. Robert Segura, DO [facility]
[2019-06-02] MEDS ORDERED: Pyridoxine TAB* 50 MG PO ONE (04:17)
[2019-06-02] MEDS ORDERED: Acetaminophen TAB* 325 MG PO PRN ×2 (05:00→06:00)
--- NOTE | 2019-06-02 05:02 | PN ---
Hospitalist Progress Note Date of Service: 06/02/19 Patient overnight has been persistently tachycardic with high fevers up to 104. This has been moderately responsive to tylenol and Ice Packs. NSAIDs have been avoided due to . Patient has had consistent rigors throughout the night. Patient's blood pressure has been declining and patient has felt persistently poorly. Repeat lactic still WNL. Fluids increased for BP support, but given , fluids are recommended to be used judiciously. Given declining BP in a fluid sensitive patient, patient will be transferred to the ICU for close monitoring and the possible need for acute intervention for blood pressure support.
[2019-06-02 05:17] LABS: ABS Lymphocytes 0.8 10^3/ul (1.0-4.8); ABS Monocytes 0.6 10^3/ul (0-0.8); Hematocrit 24 % (35-47); Hemoglobin 8.3 g/dL (12.0-16.0); Lymphocyte % 7.7 %; Mean Corpuscular HGB Conc 34 g/dL (31-36); Mean Corpuscular Hemoglobin 31 pg (27-31); Mean Corpuscular Volume 89 fL (80-97); Mean Platelet Volume 8.4 fL (7.4-10.4); Platelet Count 133 10^3/uL (150-450); Red Blood Count 2.71 10^6 /uL (3.70-4.87); Red Cell Distribution Width 14 % (10-15); White Blood Count 10.5 10^3/uL (3.5-10.8)
[2019-06-02 05:32] LABS: BUN/Creatinine Ratio 9.1 (8-20); Calcium 6.7 mg/dL (8.6-10.3); EGFR African American 168.8 (>60); EGFR Non-African American 139.5 (>60); Potassium 3.5 mmol/L (3.5-5.0)
[2019-06-02] MEDS ORDERED: NS 0.9% 500 ML* 500 ML IV ONE (05:41)
[2019-06-02 06:30] LABS: Urine Appearance Cloudy; Urine Bilirubin Negative (Negative); Urine Blood 1+ (Negative); Urine Color Yellow; Urine Glucose Negative (Negative); Urine Ketones 1+ (Negative); Urine Nitrite Negative (Negative); Urine Protein 2+(100 mg/dL) (Negative); Urine Specific Gravity 1.011 (1.010-1.030); Urine Urobilinogen Positive (Negative)
[2019-06-02 06:32] LABS: Urine Bacteria 1+ (Absent); Urine Red Blood Cell 1+(3-5/hpf) (Absent); Urine Squamous Epithelial Cell Present (Absent); Urine White Blood Cell 3+(>20/hpf) (Absent)
[2019-06-02] MEDS ORDERED: NS 0.9% 1000 ML** 1,000 ML IV SCH ×2 (07:59→08:05)
[2019-06-02] MEDS: Meropenem 1 GM PREMIX(*) 1 GM/50 ML BAG IV SCH ×3 (09:38→21:49)
[2019-06-02] MEDS: Oseltamivir CAP* 75 MG CAP PO SCH ×2 (09:40→21:05)
[2019-06-02] MEDS ORDERED: Norepinephrine 16MCG/ML IVPRE* 4,000 MCG/250 ML BAG IV SCH (10:00)
[2019-06-02] MEDS ORDERED: Acetaminophen IV 1GM/100ML * 100 ML ONE (13:18)
[2019-06-02] MEDS ORDERED: Acetaminophen IV 1GM/100ML * 100 ML IVPB SCH (14:00)
[2019-06-02] MEDS ORDERED: Acetaminophen IV 1GM/100ML * 100 ML IVPB PRN (15:00)
--- NOTE | 2019-06-02 15:07 | PN ---
Date of Service: 06/02/19 Critical Care Services: 23 Y/O female (28 weeks) admitted with Dx of influenza URI and pyelonephritis (by UA - cultures pending) - admitted to ICU because of decreasing BP but has had adequate peripheral perfusion (i.e., normal lactate, good urine output and alert mental status) without pressors. Echo of kidneys shows bilateral hydronephrosis and bladder ECHO shows left ureteral jet only. Has received empiric antibiotic Rx with meropenem. Vital Signs: Temp Pulse Resp BP SpO2 FiO2 99.5 F 98 19 94/51 96 Physical Exam: Gen:Alert, oriented Lungs: Clear Cardiac: Reg rhythm Abdomen: Extremities: No cyanosis or edema Fluid Balance (Past 24 Hours): 06/02/19 06/03/19 06:59 06:59 Intake Total 3828 1921 Output Total 1415 Balance 3828 506 Weight 191 lb 5.78 oz Intake: IV Fluids 3828 1776 NS (0.9%) 2778 1776 IVPB 145 ABX 50 NS (0.9%) 95 Oral 0 Output: Rodrigez 1415 Labs: Laboratory Results - last 24 hr 06/01/19 06/01/19 06/01/19 16:08 16:08 16:08 WBC 14.2 H RBC 3.09 L Hgb 9.7 L Hct 27 L MCV 88 MCH 31 MCHC 36 RDW 14 Plt Count 146 L MPV 8.2 Neut % (Auto) 87.7 Lymph % (Auto) 6.0 [place] % (Auto) 6.1 Eos % (Auto) 0.1 Baso % (Auto) 0.1 Absolute Neuts (auto) 12.5 H Absolute Lymphs (auto) 0.9 L Absolute Monos (auto) 0.9 H Absolute Eos (auto) 0.0 Absolute Basos (auto) 0.0 Absolute Nucleated RBC 0.0 Nucleated RBC % 0.0 INR (Anticoag Therapy) 1.29 H APTT 30.4 Sodium 130 L Potassium 3.0 L Chloride 102 Carbon Dioxide 19 L Anion Gap 9 BUN 5 L Creatinine 0.65 Est GFR ( Amer) 139.2 Est GFR (Non-Af Amer) 115.1 BUN/Creatinine Ratio 7.7 L Glucose 93 Lactic Acid Calcium 6.9 L Total Bilirubin 0.70 AST 10 L ALT 6 L Alkaline Phosphatase 72 Troponin I 0.00 Total Protein 5.4 L Albumin 2.9 L Globulin 2.5 Albumin/Globulin Ratio 1.2 Urine Color Urine Appearance Urine pH Ur Specific [place] Urine Protein Urine Ketones Urine Blood Urine Nitrate Urine Bilirubin Urine Urobilinogen Ur Leukocyte Esterase Urine WBC (Auto) Urine RBC (Auto) Ur Squamous Epith Cells Urine Bacteria Urine Glucose 06/01/19 06/01/19 06/01/19 16:08 16:52 19:28 WBC RBC Hgb Hct MCV MCH MCHC RDW Plt Count MPV Neut % (Auto) Lymph % (Auto) [place] % (Auto) Eos % (Auto) Baso % (Auto) Absolute Neuts (auto) Absolute Lymphs (auto) Absolute Monos (auto) Absolute Eos (auto) Absolute Basos (auto) Absolute Nucleated RBC Nucleated RBC % INR (Anticoag Therapy) APTT Sodium Potassium Chloride Carbon Dioxide Anion Gap BUN Creatinine Est GFR ( Amer) Est GFR (Non-Af Amer) BUN/Creatinine Ratio Glucose Lactic Acid 0.7 0.4 L Calcium Total Bilirubin AST ALT Alkaline Phosphatase Troponin I Total Protein Albumin Globulin Albumin/Globulin Ratio Urine Color Yellow Urine Appearance Cloudy Urine pH 6.0 Ur Specific [place] 1.008 L Urine Protein 2+(100 mg/dl) A Urine Ketones 1+ A Urine Blood 1+ A Urine Nitrate Positive A Urine Bilirubin Negative Urine Urobilinogen Negative Ur Leukocyte Esterase 3+ A Urine WBC (Auto) 3+(>20/hpf) A Urine RBC (Auto) 2+(6-10/hpf) A Ur Squamous Epith Cells Present A Urine Bacteria 1+ A Urine Glucose Negative 06/01/19 06/02/19 06/02/19 23:42 04:58 04:58 WBC 10.5 RBC 2.71 L Hgb 8.3 L Hct 24 L MCV 89 MCH 31 MCHC 34 RDW 14 Plt Count 133 L MPV 8.4 Neut % (Auto) 86.2 Lymph % (Auto) 7.7 [place] % (Auto) 6.0 Eos % (Auto) 0.0 Baso % (Auto) 0.1 Absolute Neuts (auto) 9.0 H Absolute Lymphs (auto) 0.8 L Absolute Monos (auto) 0.6 Absolute Eos (auto) 0.0 Absolute Basos (auto) 0.0 Absolute Nucleated RBC 0.0 Nucleated RBC % 0.0 INR (Anticoag Therapy) APTT Sodium 131 L Potassium 3.5 Chloride 109 Carbon Dioxide 16 L Anion Gap 6 BUN 5 L Creatinine 0.55 Est GFR ( Amer) 168.8 Est GFR (Non-Af Amer) 139.5 BUN/Creatinine Ratio 9.1 Glucose 92 Lactic Acid 1.2 Calcium 6.7 L Total Bilirubin AST ALT Alkaline Phosphatase Troponin I Total Protein Albumin Globulin Albumin/Globulin Ratio Urine Color Urine Appearance Urine pH Ur Specific [place] Urine Protein Urine Ketones Urine Blood Urine Nitrate Urine Bilirubin Urine Urobilinogen Ur Leukocyte Esterase Urine WBC (Auto) Urine RBC (Auto) Ur Squamous Epith Cells Urine Bacteria Urine Glucose 06/02/19 06/02/19 06:22 08:24 WBC RBC Hgb Hct MCV MCH MCHC RDW Plt Count MPV Neut % (Auto) Lymph % (Auto) [place] % (Auto) Eos % (Auto) Baso % (Auto) Absolute Neuts (auto) Absolute Lymphs (auto) Absolute Monos (auto) Absolute Eos (auto) Absolute Basos (auto) Absolute Nucleated RBC Nucleated RBC % INR (Anticoag Therapy) APTT Sodium Potassium Chloride Carbon Dioxide Anion Gap BUN Creatinine Est GFR ( Amer) Est GFR (Non-Af Amer) BUN/Creatinine Ratio Glucose Lactic Acid 0.4 L Calcium Total Bilirubin AST ALT Alkaline Phosphatase Troponin I Total Protein Albumin Globulin Albumin/Globulin Ratio Urine Color Yellow Urine Appearance Cloudy Urine pH 6.0 Ur Specific [place] 1.011 Urine Protein 2+(100 mg/dl) A Urine Ketones 1+ A Urine Blood 1+ A Urine Nitrate Negative Urine Bilirubin Negative Urine Urobilinogen Positive A Ur Leukocyte Esterase 3+ A Urine WBC (Auto) 3+(>20/hpf) A Urine RBC (Auto) 1+(3-5/hpf) A Ur Squamous Epith Cells Present A Urine Bacteria 1+ A Urine Glucose Negative Studies: ECHOs - as mentioned. Nutrition: Unrestricted oral diet Impression: Apparent urosepsis - appears to be controlled with meropenem (as empiric Rx). No signs of septic shock. Bilateral hydronephrosis is probably the "physiological" hydronephrosis associated with (and not evidence of a pathological obstruction). Plan: 1. Continue fluids and empiric antibiotics. Will reduce fluid volume as soon as BP remains stable. 2. Vasopressors if needed (if MABP < 65 mm Hg) Critical Care Time: 120 minutes (including time spent monitoring BP and clinical status).
[2019-06-02] MEDS ORDERED: cefTRIAXone(*) 1 GM in NS 0.9% 50 ML* 50 ML IVPB SCH (16:00)
[2019-06-02] MEDS ORDERED: fentaNYL* 50 MCG/ML 2 ML VIAL (100 MCG VIAL) ONE (16:45)
[2019-06-02] MEDS ORDERED: fentaNYL* 50 MCG/ML 2 ML VIAL (100 MCG VIAL) IV SLOW PU PRN (16:45)
--- NOTE | 2019-06-02 19:52 | CONS ---
CONSULTATION NOTE: DATE OF CONSULT: 06/02/19 LOCATION: The patient is in the ICU. HISTORY OF PRESENT ILLNESS: I was asked by Dr. Krishnan, our automatic pad making machine operator, to see this 23-year-old white female who is 28 weeks , because of bilateral pyelonephritis and early sepsis. Ms. Sweet has a long history of recurrent urinary tract infections and during her previous she developed pyelonephritis and required antibiotic treatment. Going over her previous urine cultures, she had grown E. coli that was sensitive to most antibiotics. The last urine culture that was we have on record was in January 2019 and at that time it was positive for E. coli sensitive to all antibiotics except ampicillin, Keflex, tetracycline, and Augmentin. It was sensitive to ceftriaxone and to meropenem. The patient is presently 28 weeks . About 10 days ago, she started having symptoms of the flu and her influenza culture was positive. She had been taking Tamiflu. She had had fever, myalgias with it. The patient started having bilateral back pain 2 days ago. There were associated mild symptoms of cystitis with urgency, frequency, and burning on urination. The flank pain was equal bilaterally and was not acute at its onset to suggest renal colic. She also noted that she was having a fever of 103. She presented to the urgent care center yesterday and was then referred to the emergency room where she was evaluated. An evaluation in the emergency room by the medical staff showed her to be afebrile. She had bilateral flank tenderness. She was tachycardic and her blood pressure was in the upper 90s. Her lab work showed a white count of 10,500 and there was a slight increase in the absolute neutrophils at 9.0. Her serum creatinine was normal for at 0.5. Her lactic acid was not elevated. Her urinalysis was positive for infection. Because the patient fulfilled the criteria for sepsis, she was admitted and was started on IV antibiotics. Because of concern about progression of urosepsis, and low normal BP, she was transferred to the intensive care unit where she has been placed on IV meropenem. Rodrigez catheter for urine output monitoring was placed. Blood cultures and urine cultures were obtained and the results are pending. The patient had bilateral renal ultrasound earlier today. The study showed bilateral ihas-at-rxzudbbr hydronephrosis consistent with her stage of . There were no calculi noted in either kidney or in the visualized portions of the ureters. The patient had a Rodrigez catheter, so the presence or absence of ureteral jets could not be checked. To check for possible obstructive uropathy, the patient had repeat of the bladder ultrasound after clamping her Rodrigez catheter to check for the presence of ureteral jets. The bladder was filled up only to 60 cc. Jets were noted from the left orifice, but none from the right. Because of that finding, a urology consultation was obtained to rule out obstructive uropathy. PHYSICAL EXAM: On physical examination today, the patient was lying in bed. She seemed uncomfortable because of her back pain. Exam of the abdomen showed bilateral upper quadrant pain and bilateral and equal flank pains. Her color was good and her extremities were warm and she was not sweaty. She still had a Rodrigez catheter in place with good urine output and normal color. IMPRESSION AND PLAN: The findings are consistent with bilateral pyelonephritis with . The bilateral uroq-wu-yahuizom hydronephrosis are physiologic and consistent with her stage of . The only concern is the fact that jet from the right orifice was not visualized on her ultrasound. That could be because the bladder was not full enough or because of the presence of the Rodrigez that could have obscured the right ureteral orifice. On reviewing her previous imaging, the patient had CT of the abdomen and pelvis on 08/09/18. The study at that time showed no hydronephrosis and no renal or ureteral calculi. The patient most likely does not have obstructive uropathy; however, I would like to confirm the absence of any ureteral obstruction by obtaining a noncontrast MRI of the abdomen. If the MRI shows no calculi, then the plan would be to continue with medical treatment of her pyelonephritis with IV antibiotics and IV fluids and adjusting the antibiotics depending upon the results of the urine and blood cultures. If obstructive uropathy is noted, then the patient will need urgent drainage. [id number]/[facility] #: [id number] MER
[2019-06-02 20:28] LABS: Magnesium 1.4 mg/dL (1.9-2.7)
[2019-06-02] MEDS ORDERED: hydrOXYzine HCL TAB* 50 MG PO ONE (21:00)
[2019-06-03] MEDS: Meropenem 1 GM PREMIX(*) 1 GM/50 ML BAG IV SCH ×3 (01:04→17:19)
[2019-06-03 04:45] LABS: ABS Lymphocytes 1.2 10^3/ul (1.0-4.8); ABS Monocytes 0.6 10^3/ul (0-0.8); ABS Neutrophils 7.9 10^3/ul (1.5-7.7); Eosinophil % 0.2 %; Hematocrit 25 % (35-47); Hemoglobin 8.3 g/dL (12.0-16.0); Lymphocyte % 12.6 %; Mean Corpuscular HGB Conc 34 g/dL (31-36); Mean Corpuscular Hemoglobin 31 pg (27-31); Mean Corpuscular Volume 91 fL (80-97); Mean Platelet Volume 8.6 fL (7.4-10.4); Platelet Count 158 10^3/uL (150-450); Red Cell Distribution Width 14 % (10-15); White Blood Count 9.8 10^3/uL (3.5-10.8)
[2019-06-03 04:59] LABS: BUN/Creatinine Ratio 7.3 (8-20); Calcium 6.9 mg/dL (8.6-10.3); EGFR African American 168.8 (>60); EGFR Non-African American 139.5 (>60); Potassium 3.5 mmol/L (3.5-5.0)
[2019-06-03 05:59] LABS: Magnesium 1.7 mg/dL (1.9-2.7)
[2019-06-03] MEDS ORDERED: Lactated Ringers 1000 ML Bag* 1,000 ML IV SCH (06:00)
[2019-06-03] MEDS ORDERED: Magnesium Sulfate 2 GM IV* 2 GM/50 ML BAG IVPB ONE (06:03)
[2019-06-03] MEDS: Oseltamivir CAP* 75 MG CAP PO SCH ×2 (08:10→20:46)
[2019-06-03] MEDS: Ondansetron INJ* 2 MG/ML VIAL IV PRN ×2 (09:13→11:14)
--- NOTE | 2019-06-03 09:27 | PN ---
Date of Service: 06/03/19 Critical Care Services: Clinically improved this AM. The fever, leukocytosis, and tachycardia have all resolved, and BP is maintained without pressors. The MRI last night showed bilateral ureteral obstructions from a gravid uterus, witout evidnce of stones. Vital Signs: Temp Pulse Resp BP SpO2 FiO2 98.8 F 89 19 102/51 100 Physical Exam: Gen:Resting comfortably Lungs:Clear Cardiac: Reg rhythm Abdomen: Extremities:No cyanosis or edema Fluid Balance (Past 24 Hours): 06/02/19 06/03/19 06:59 06:59 Intake Total 3828 3621 Output Total 2480 Balance 3828 1141 Weight 191 lb 5.78 oz 197 lb 1.492 oz Intake: IV Fluids 3828 3277 NS (0.9%) 2778 3277 IVPB 244 ABX 149 NS (0.9%) 95 Oral 0 100 Output: Rodrigez 2480 Labs: 06/02/19 06/02/19 06/03/19 04:58 14:27 04:30 WBC RBC Hgb Hct MCV MCH MCHC RDW Plt Count MPV Neut % (Auto) Lymph % (Auto) [place] % (Auto) Eos % (Auto) Baso % (Auto) Absolute Neuts (auto) Absolute Lymphs (auto) Absolute Monos (auto) Absolute Eos (auto) Absolute Basos (auto) Absolute Nucleated RBC Nucleated RBC % Sodium 131 L 136 Potassium 3.5 3.5 Chloride 109 113 H Carbon Dioxide 16 L 13 L* Anion Gap 6 10 BUN 5 L 4 L Creatinine 0.55 0.55 Est GFR ( Amer) 168.8 168.8 Est GFR (Non-Af Amer) 139.5 139.5 BUN/Creatinine Ratio 9.1 7.3 L Glucose 92 71 Lactic Acid 0.5 Calcium 6.7 L 6.9 L Magnesium 1.4 L 1.7 L 06/03/19 06/03/19 04:30 04:30 WBC 9.8 RBC 2.70 L Hgb 8.3 L Hct 25 L MCV 91 MCH 31 MCHC 34 RDW 14 Plt Count 158 MPV 8.6 Neut % (Auto) 80.5 Lymph % (Auto) 12.6 [place] % (Auto) 6.5 Eos % (Auto) 0.2 Baso % (Auto) 0.2 Absolute Neuts (auto) 7.9 H Absolute Lymphs (auto) 1.2 Absolute Monos (auto) 0.6 Absolute Eos (auto) 0.0 Absolute Basos (auto) 0.0 Absolute Nucleated RBC 0.0 Nucleated RBC % 0.0 Sodium Potassium Chloride Carbon Dioxide Anion Gap BUN Creatinine Est GFR ( Amer) Est GFR (Non-Af Amer) BUN/Creatinine Ratio Glucose Lactic Acid 0.4 L Calcium Magnesium Studies: MRI - as mentioned. Nutrition: Oral diet - intake has been poor. Impression: 1. Presumed urosepsis (urine cultures pending) associated with "physiological" urinary obstruction from a gravid uterus, Rxed with meropenem empirically. Signs of sepsis have resolved. 2. Hyperchloremic (non-gap) metabolic acidosis, most likely from aggressive saline infusion. Plan: 1. Switch IVs to LR (done) and drop IV rate 2. Continue meropenem until urine cultures available. 3. Stop monitoring lactate levels. 4. Transfer out of ICU today Critical Care Time: 40 minutes
[2019-06-03] MEDS ORDERED: Acetaminophen TAB* 325 MG PO PRN (10:25)
[2019-06-03] MEDS: Benzonatate CAP* 100 MG PO PRN (11:39)
[2019-06-03] MEDS: Lactated Ringers 1000 ML Bag* 1,000 ML IV SCH (12:39)
[2019-06-03] MEDS ORDERED: fentaNYL* 50 MCG/ML 2 ML VIAL (100 MCG VIAL) IV SLOW PU PRN (15:26)
[2019-06-04] MEDS: Benzonatate CAP* 100 MG PO PRN (00:32)
[2019-06-04] MEDS: Lactated Ringers 1000 ML Bag* 1,000 ML IV SCH ×3 (00:37→20:11)
[2019-06-04] MEDS: Meropenem 1 GM PREMIX(*) 1 GM/50 ML BAG IV SCH ×2 (00:37→08:36)
--- NOTE | 2019-06-04 01:23 | PN ---
Progress Note - Progress Note Date of Service: 06/04/19 Note: Reviewed tracing from 06/03/19. FHT appropriate for gestational age. Spoke with Dr. Murphy earlier today and agreed with plan to transfer patient out of ICU to hospitalist service. Will continue to monitor status and be available for questions or concerns.
[2019-06-04] MEDS: Oseltamivir CAP* 75 MG CAP PO SCH ×2 (08:36→20:11)
--- NOTE | 2019-06-04 09:41 | PN ---
Subjective Date of Service: 06/04/19 Interval History: Patient has no new complaints. She still is coughing. Not requiring O2. She is eating OK. No urinary complaints. Walking to bathroom. Family History: Unchanged from Admission Social History: Unchanged from Admission Past Medical History: Unchanged from Admission Objective Active Medications: Acetaminophen (Tylenol Tab*) 650 mg PO Q6H PRN PRN Reason: MILD PAIN or TEMP > 100.4 Last Admin: 06/03/19 11:17 Dose: 650 mg Benzonatate (Tessalon Cap*) 100 mg PO BID PRN PRN Reason: COUGH Last Admin: 06/04/19 00:32 Dose: 100 mg Fentanyl Citrate (Fentanyl*) 25 mcg IV SLOW PU Q3H PRN PRN Reason: PAIN - SEVERE Lactated Ringer's (Lactated Ringers 1000 Ml Bag*) 1,000 mls @ 100 mls/hr IV PER RATE RELL Last Admin: 06/04/19 00:37 Dose: 100 mls/hr Ceftriaxone Sodium 1 gm/ (Sodium Chloride) 50 mls @ 100 mls/hr IVPB Q24H [facility] Magnesium Oxide (Magox 400 Tab*) 400 mg PO BID [facility] Ondansetron HCl (Zofran Inj*) 4 mg IV Q4H PRN PRN Reason: NAUSEA/VOMITING Last Admin: 06/03/19 11:14 Dose: 4 mg Oseltamivir Phosphate (Tamiflu Cap*) 75 mg PO BID [facility] Stop: 06/06/19 09:01 Last Admin: 06/04/19 08:36 Dose: 75 mg Vital Signs - 8 hr 06/04/19 06/04/19 03:15 07:15 Temperature 37.0 C 36.3 C Pulse Rate 82 74 Respiratory 18 18 Rate Blood Pressure 103/50 92/49 (mmHg) O2 Sat by Pulse 98 98 Oximetry Oxygen Devices in Use Now: None Appearance: alert, no distress Eyes: No Scleral Icterus Ears/Nose/Mouth/Throat: Clear Oropharnyx Neck: No Thyroid Enlargement, Masses Respiratory: Symmetrical Chest Expansion and Respiratory Effort, Clear to Auscultation Cardiovascular: NL Sounds; No Murmurs; No JVD, RRR Abdominal: No Hepatosplenomegaly, - - gravid, +BS, no masses, no CVAT Lymphatic: No Cervical Adenopathy Neurological: Alert and Oriented x 3 Lines/Tubes/Other Access: Clean, Dry and Intact Peripheral IV Nutrition: Taking PO's Result Diagrams: 06/03/19 04:30 06/03/19 04:30 Microbiology and Other Data: Microbiology 06/01/19 16:52 Urine Culture - Final Urine Escherichia Coli 06/01/19 16:08 Aerobic Blood Culture - Preliminary Blood Venous No Growth Day 2 Anaerobic Blood Culture - Preliminary No Growth Day 2 06/01/19 16:08 Aerobic Blood Culture - Preliminary Blood Venous No Growth Day 2 Anaerobic Blood Culture - Preliminary No Growth Day 2 06/02/19 05:38 Nasal Screen MRSA (PCR) - Final Nasal Mrsa Not Detected Assess/Plan/Problems-Billing Assessment: 23 year old with influenza, hydronephrosis due to uterine pressure on ureters, and pyelonephritis. - Patient Problems (1) Pyelonephritis complicating Current Visit: Yes Status: Acute Priority: High Code(s): O23.00 - INFECTIONS OF KIDNEY IN , UNSPECIFIED TRIMESTER SNOMED Code(s): 31834674 Comment: -Culture shows E Coli sensitive to all abx but amoxicillin -Will stop meropenem, start ceftriaxone. -may be ready for discharge on PO medications tomorrow (2) Hydronephrosis determined by ultrasound Current Visit: Yes Status: Acute Priority: Medium Code(s): N13.30 - UNSPECIFIED HYDRONEPHROSIS SNOMED Code(s): 89420948 Comment: -No renal stones seen on ultrasound -MRI and U/S show gravid uterus is cause of obstruction -Urology recommended no intervention. (3) Influenza B Current Visit: Yes Status: Acute Priority: Medium Code(s): J10.1 - FLU DUE TO OTH IDENT INFLUENZA VIRUS W OTH RESP MANIFEST SNOMED Code(s): 13249093 Comment: -Patient has bronchitis due to flu, no pneumonia seen on CXR -Continue tamiflu. (4) DVT prophylaxis Current Visit: Yes Status: Acute Priority: Medium Code(s): Z29.9 - ENCOUNTER FOR PROPHYLACTIC MEASURES, UNSPECIFIED SNOMED Code(s): 399603931 Comment: -has MACHO stockings Status and Disposition: possible discharge tomorrow
[2019-06-04] MEDS ORDERED: cefTRIAXone(*) 1 GM in NS 0.9% 50 ML* 50 ML IVPB SCH (10:00)
[2019-06-04] MEDS: Magnesium Oxide TAB* 400 MG PO SCH ×2 (10:13→20:11)
--- NOTE | 2019-06-04 11:51 | PN ---
Progress Note - Progress Note Date of Service: 06/04/19 Note: S: Pt doing well this AM. Reports that she is feeling significantly improved at this time. Is tolerating PO intake and feels much less fatigued. Denies any vaginal bleeding, LOF, or cramping/contractions. Reports good Movement. O: Gen: NAD, AAOX3 CV: RRR Pulm: CTABL Abd: gravid, soft, nd, nttp, negative fundal tenderness Ext: warm, nttp FHT: NST performed this AM, reactive with good variability, baseline 120bpm, no decels, appropriate for gestational age. [place] is quiet. A/P: 23 y/o in the 28th week of with sepsis, secondary to Flu and Pyelonephritis, now improving - status is reassuring, there are no signs of symptoms of distress , no s/sx of PTL - Pt appears significantly improved this AM - Appreciate excellent care given by ICU and hospitalist team - Agree with plans to advance to PO Abx once 48 hours afebrile, recommend additional 10-14 days of targeted Abx therapy at time of discharge. Should follow up with OB within one week of discharge, will likely start on prophylactic Abx for remainder of once targeted therapy is concluded. - OB team will continue to follow along DO LYDIA Hirsch
[2019-06-05] MEDS: Lactated Ringers 1000 ML Bag* 1,000 ML IV SCH (06:04)
[2019-06-05 06:34] LABS: BUN/Creatinine Ratio 7.5 (8-20); Calcium 6.9 mg/dL (8.6-10.3); EGFR African American 243.8 (>60); EGFR Non-African American 201.5 (>60); Magnesium 1.6 mg/dL (1.9-2.7); Potassium 3.6 mmol/L (3.5-5.0)
[2019-06-05] MEDS ORDERED: Cefdinir cap* 300 MG CAP PO SCH (09:00)
[2019-06-05] MEDS: Oseltamivir CAP* 75 MG CAP PO SCH (09:45)
[2019-06-05] MEDS: Magnesium Oxide TAB* 400 MG PO SCH (09:45)
--- NOTE | 2019-06-05 12:15 | PN ---
Progress Note - Progress Note Date of Service: 06/05/19 Note: NST performed. Baseline 120, moderate variability, + accels, no decels, appropriate for gestational age. No regular contractions on toco. Pt is comfortable. Feels good movement. Denies vaginal bleeding, LOF, contractions. Appears much improved this AM, up, out of bed and ambulating around room. AVSS, afebrile, hemodynamically stable. Will be 48 hours afebrile at 11 am this AM. Has been transitioned to PO abx Cefdinir, tolerating well. Anticipate discharge this afternoon, per medicine team. Recommend continued targeted therapy with Cefdinir x 14 days on discharge. Will see pt in office within 7 days of discharge, will plan to start on prophylactic antibiotics on completion of targeted therapy. Will stay on prophylatic antbiotics for the remainder of . Appreciate excellent care provided by ICU and Medicine teams during this patient 's hospitalization. DO LYDIA Hirsch
--- NOTE | 2019-06-05 14:50 | DS ---
CC: [employer] [facility] [place], SURGERY NURSE * DISCHARGE SUMMARY: DATE OF ADMISSION: 06/01/19 DATE OF DISCHARGE: 06/05/19 PRINCIPAL DISCHARGE DIAGNOSES: 1. Sepsis. 2. Pyelonephritis. 3. Influenza. 4. Anemia. 5. . MEDICATIONS FOR DISCHARGE: 1. Ferrous gluconate 325 mg daily. 2. Tessalon 100 mg b.i.d. p.r.n. cough. 3. Cefdinir 300 mg b.i.d. for 5 more days. 4. Magnesium oxide 400 mg b.i.d. PHYSICAL EXAM AT DISCHARGE: Temperature 98.2, heart rate 68, respiratory rate 24, pulse ox 92% on room air, blood pressure 139/70. General: Alert, well appearing, young woman, in no distress. HEENT: Pupils equal, round, reactive to light. Oral mucosa is moist. Neck: No JVP. No adenopathy. Chest: Regular rate and rhythm with no murmurs. Lungs are clear bilaterally. Her abdomen is significant for gravid uterus. No CVA tenderness. Bowel sounds are normoactive. Extremities: No edema, rashes, ulcers. CONSULTATIONS DURING THIS ADMISSION: Dr. Segura and Dr. Castellanos from SURGERY NURSE and Dr. Carr from Urology. HOSPITAL COURSE BY PROBLEM: 1. Sepsis, likely related to pyelonephritis and influenza. Ms. Sweet was initially admitted to the ICU for sepsis, for marginal blood pressures; however , she maintained a normal lactic, good urine output and did not require pressor support in the ICU. She was initiated on meropenem and volume resuscitation. Initially in the ICU, a renal ultrasound showed bilateral hydronephrosis and a bladder echo showed a left ureteral jet only, so Urology was consulted. Dr. Carr saw her and recommended an abdominal MRI to rule out a stone causing obstructive uropathy. The abdominal MRI showed bilateral mid ureteral obstruction due to the gravid uterus. Both Urology and OB agreed that these findings were consistent with the patient's current state and no further intervention was recommended. She was transitioned from meropenem to ceftriaxone when her urine cultures returned positive for E. coli, sensitive to everything, but ampicillin. She was continued on ceftriaxone. Her blood cultures remained negative and she was continued on ceftriaxone and Tamiflu and IV fluids. At the time of discharge, she is being continued on cefdinir for 5 more days for a total of 10 days. She has completed 7 days of Tamiflu at this point, so we will discontinue that. 2. Anemia. She has been consistently iron deficient in this current and in prior pregnancies and was taking iron at admission. This was continued and her hemoglobin drop was likely multifactorial and related to acute illness and aggressive IV fluid resuscitation. I discussed this with Dr. Segura and he recommends OB followup for rechecks regularly. She has no symptoms of anemia at this time. 3. Hypomagnesemia. I am discharging her on a short course of magnesium. 4. . She is 28 weeks and was followed by OB throughout her course with nonstress test. There was no evidence of distress and she will follow up with [facility]. DISPOSITION: Ms. Sweet is being discharged to home on 06/05/19. CONDITION AT THE TIME OF DISCHARGE: Stable. [id number]/[facility] #: [id number] MTDD
[2019-06-05 15:18] VITALS: BP 100/59
== END 2019-06-05 15:00 | disposition home or self-care (01) | DRG 566 ==
LOC: ED 15:47 → MEDTELE 17:36 → ICU 06-02 04:52 → MED 06-03 14:13
PROVIDERS: ADMIT Obstetrics & Gynecology; ATTEND Internal Medicine
DX: O98.812 Other maternal infectious and parasitic diseases complicating pregnancy, second trimester (principal); A41.9 Sepsis, unspecified organism; N13.30 Unspecified hydronephrosis; O23.02 Infections of kidney in pregnancy, second trimester; B96.20 Unspecified Escherichia coli [E. coli] as the cause of diseases classified elsewhere; J11.1 Influenza due to unidentified influenza virus with other respiratory manifestations; R00.0 Tachycardia, unspecified; I95.9 Hypotension, unspecified; E87.6 Hypokalemia; N25.89 Other disorders resulting from impaired renal tubular function; N13.5 Crossing vessel and stricture of ureter without hydronephrosis; O99.012 Anemia complicating pregnancy, second trimester; D50.9 Iron deficiency anemia, unspecified; E83.42 Hypomagnesemia; E87.8 Other disorders of electrolyte and fluid balance, not elsewhere classified; Z3A.28 28 weeks gestation of pregnancy; Z87.440 Personal history of urinary (tract) infections; Z88.1 Allergy status to other antibiotic agents; Z91.030 Bee allergy status; Z79.899 Other long term (current) drug therapy; Z80.3 Family history of malignant neoplasm of breast; Z80.0 Family history of malignant neoplasm of digestive organs; Z80.42 Family history of malignant neoplasm of prostate; Z83.3 Family history of diabetes mellitus
CPT/HCPCS: 36415; 71045; 74181; 76775; 76857; 80048; 80053; 81003; 81015; 83605; 83735; 84484; 85025; 85610; 85730; 87040; 87077; 87086; 87186; 87641; 93005; 96361; 96365; 99283; A9270-GY; J0696; J2185; J2405; J3010; J3475

== ENCOUNTER 2021-09-06 03:25 | Inpatient (IN) ==
[2021-09-06] MEDS ORDERED: Buffered Lidocaine 1% SYRIN 1 ml INTRADERM ONE (04:13)
[2021-09-06] MEDS ORDERED: Lactated Ringers 1000 ml BAG 1,000 ML IV ONE ×2 (04:13→14:21)
[2021-09-06 05:00] LABS: Urine Benzodiazepine Screen None Detected (None Detect); Urine Cannabinoids Screen None Detected (None Detect); Urine Opiates Screen None Detected (None Detect)
[2021-09-06] MEDS ORDERED: Oxytocin in LR 20 UNITS/1,000 ML BAG IVPB SCH ×2 (05:00→17:00)
[2021-09-06] MEDS ORDERED: Lactated Ringers 1000 ml BAG 1,000 ML IV SCH ×3 (05:00→17:00)
[2021-09-06 05:06] LABS: ABS Monocytes 0.6 10^3/ul (0-0.8); ABS Neutrophils 7.3 10^3/ul (1.5-7.7); Eosinophil % 0.4 %; Hematocrit 29 % (35-47); Hemoglobin 9.4 g/dL (12.0-16.0); Mean Corpuscular HGB Conc 33 g/dL (31-36); Mean Corpuscular Hemoglobin 27 pg (27-31); Mean Corpuscular Volume 82 fL (80-97); Mean Platelet Volume 9.6 fL (7.4-10.4); Platelet Count 211 10^3/uL (150-450); Red Blood Count 3.49 10^6 /uL (3.70-4.87); Red Cell Distribution Width 16 % (10-15); White Blood Count 9.9 10^3/uL (3.5-10.8)
[2021-09-06] MEDS ORDERED: Lidocaine 1.5% EPI 1:200,000 30 ML SDV ONE (13:26)
[2021-09-06] MEDS ORDERED: OBEPIDURAL (200 ML) 200 ML EPIDURAL ONE (13:28)
[2021-09-06] MEDS ORDERED: EPHEDrine (Pressors) 50 MG/ML VIAL IV PUSH PRN (14:21)
[2021-09-06] MEDS ORDERED: Sodium Citrate/Citric Acid LIQ 15 ML UDC PO PRN (14:21)
[2021-09-06] MEDS ORDERED: Phenylephrine 40 mcg/mL 10mL (400mcg) SYRINGE IV PUSH PRN (14:21)
[2021-09-06] MEDS ORDERED: Lactated Ringers 1000 ml BAG 500 ML IV PRN (14:21)
[2021-09-06 14:47] LABS: Urine Appearance Clear; Urine Bilirubin Negative (Negative); Urine Blood 1+ (Negative); Urine Color Straw; Urine Glucose Negative (Negative); Urine Ketones Negative (Negative); Urine Nitrite Negative (Negative); Urine Protein Negative (Negative); Urine Specific Gravity 1.008 (1.002-1.030); Urine Urobilinogen Negative (Negative)
[2021-09-06 14:53] LABS: Urine Bacteria Absent (Absent); Urine Red Blood Cell Trace(0-2/hpf) (Absent); Urine Squamous Epithelial Cell Present (Absent); Urine White Blood Cell Trace(0-5/hpf) (Absent)
[2021-09-06] MEDS ORDERED: OBEPIDURAL (200 ML) 200 ML EPIDURAL SCH (15:00)
[2021-09-06] MEDS ORDERED: Dibucaine 1% OINT 28.35 GM TUBE PR PRN (16:21)
[2021-09-06] MEDS ORDERED: Witch Hazel PAD JAR TOPICAL PRN (16:21)
[2021-09-07 06:13] LABS: ABS Eosinophils 0.1 10^3/ul (0-0.6); ABS Monocytes 0.4 10^3/ul (0-0.8); ABS Neutrophils 6.1 10^3/ul (1.5-7.7); Eosinophil % 0.9 %; Hematocrit 27 % (35-47); Hemoglobin 8.9 g/dL (12.0-16.0); Lymphocyte % 22.9 %; Mean Corpuscular HGB Conc 34 g/dL (31-36); Mean Corpuscular Hemoglobin 27 pg (27-31); Mean Corpuscular Volume 81 fL (80-97); Mean Platelet Volume 8.5 fL (7.4-10.4); Platelet Count 171 10^3/uL (150-450); Red Blood Count 3.28 10^6 /uL (3.70-4.87); Red Cell Distribution Width 16 % (10-15); White Blood Count 8.6 10^3/uL (3.5-10.8)
[2021-09-07 15:54] VITALS: BP 107/58
== END 2021-09-07 16:32 | disposition home or self-care (01) | DRG 560 ==
LOC: MCHOBOUT 03:25 → MCHOB 04:23
PROVIDERS: ADMIT Midwife; ATTEND Midwife

== ENCOUNTER 2021-10-23 12:13 | Observation (INO) ==
[2021-10-23] MEDS ORDERED: Ondansetron 4 mg VIAL 2 MG/ML 2 ml VIAL IV ONE (13:33)
[2021-10-23] MEDS ORDERED: Morphine 4 MG/ML VIAL (1 ml) IV ONE ×2 (13:33→15:58)
[2021-10-23 14:19] LABS: ABS Lymphocytes 1.5 10^3/ul (1.0-4.8); ABS Monocytes 0.7 10^3/ul (0-0.8); ABS Neutrophils 9.2 10^3/ul (1.5-7.7); Eosinophil % 0.4 %; Hematocrit 38 % (35-47); Hemoglobin 12.3 g/dL (12.0-16.0); Lymphocyte % 13.1 %; Mean Corpuscular HGB Conc 32 g/dL (31-36); Mean Corpuscular Hemoglobin 27 pg (27-31); Mean Corpuscular Volume 83 fL (80-97); Mean Platelet Volume 9.3 fL (7.4-10.4); Platelet Count 238 10^3/uL (150-450); Red Blood Count 4.61 10^6 /uL (3.70-4.87); Red Cell Distribution Width 20 % (10-15); White Blood Count 11.5 10^3/uL (3.5-10.8)
[2021-10-23 15:19] LABS: Albumin 4.5 g/dL (3.2-5.2); Albumin/Globulin Ratio 1.7 (1-3); C Reactive Protein 6.79 mg/L (<8.01); Calcium 9.6 mg/dL (8.6-10.3); Globulin 2.7 g/dL (2-4); Potassium 4.3 mmol/L (3.5-5.0); Total Bilirubin 1.1 mg/dL (0.2-1.0); Total Protein 7.2 g/dL (6.4-8.9)
[2021-10-23] MEDS ORDERED: Iohexol 350 (CONTRAST) 500 ML MDV IV ONE (15:21)
[2021-10-23] MEDS: Ondansetron 4 mg VIAL 2 MG/ML 2 ml VIAL IV PRN ×2 (19:30→23:37)
[2021-10-23] MEDS: oxyCODONE/Acetamin 5/325 mg TAB PO PRN ×2 (19:36→23:46)
[2021-10-23] MEDS: HYDROmorphone 0.5 MG/0.5 ML SYRINGE IV SLOW PU PRN (21:50)
[2021-10-24] MEDS: HYDROmorphone 0.5 MG/0.5 ML SYRINGE IV SLOW PU PRN ×5 (03:34→23:59)
[2021-10-24] MEDS: Ondansetron 4 mg VIAL 2 MG/ML 2 ml VIAL IV PRN ×6 (03:38→23:59)
[2021-10-24 05:25] LABS: ABS Eosinophils 0.1 10^3/ul (0-0.6); ABS Lymphocytes 1.4 10^3/ul (1.0-4.8); ABS Monocytes 0.4 10^3/ul (0-0.8); ABS Neutrophils 2.7 10^3/ul (1.5-7.7); Eosinophil % 1.4 %; Hematocrit 37 % (35-47); Hemoglobin 11.8 g/dL (12.0-16.0); Lymphocyte % 29.6 %; Mean Corpuscular HGB Conc 32 g/dL (31-36); Mean Corpuscular Hemoglobin 27 pg (27-31); Mean Corpuscular Volume 83 fL (80-97); Mean Platelet Volume 8.8 fL (7.4-10.4); Nucleated Red Blood Cells % 0.1; Platelet Count 207 10^3/uL (150-450); Red Blood Count 4.41 10^6 /uL (3.70-4.87); Red Cell Distribution Width 20 % (10-15); White Blood Count 4.6 10^3/uL (3.5-10.8)
[2021-10-24 05:59] LABS: Albumin 3.9 g/dL (3.2-5.2); Albumin/Globulin Ratio 1.6 (1-3); Calcium 9.2 mg/dL (8.6-10.3); Globulin 2.4 g/dL (2-4); Potassium 4.4 mmol/L (3.5-5.0); Total Bilirubin 2.5 mg/dL (0.2-1.0); Total Protein 6.3 g/dL (6.4-8.9); eGFR CKD-EPI 126.5 (>60)
[2021-10-24] MEDS: Lactated Ringers 1000 ml BAG 1,000 ML IV SCH ×2 (08:15→19:43)
[2021-10-24] MEDS: oxyCODONE/Acetamin 5/325 mg TAB PO PRN (19:43)
[2021-10-24 20:10] LABS: Albumin 3.8 g/dL (3.2-5.2); Albumin/Globulin Ratio 1.8 (1-3); Calcium 8.9 mg/dL (8.6-10.3); Globulin 2.1 g/dL (2-4); Potassium 4.3 mmol/L (3.5-5.0); Total Bilirubin 0.8 mg/dL (0.2-1.0); Total Protein 5.9 g/dL (6.4-8.9); eGFR CKD-EPI 102.4 (>60)
[2021-10-25] MEDS: HYDROmorphone 0.5 MG/0.5 ML SYRINGE IV SLOW PU PRN (05:56)
[2021-10-25] MEDS: Lactated Ringers 1000 ml BAG 1,000 ML IV SCH (05:56)
[2021-10-25 05:57] LABS: Albumin 3.6 g/dL (3.2-5.2); Albumin/Globulin Ratio 1.7 (1-3); Direct Bilirubin 0.2 mg/dL (0.03-0.18); Globulin 2.1 g/dL (2-4); Indirect Bilirubin 0.6 mg/dL (0.3-1.0); Total Bilirubin 0.8 mg/dL (0.2-1.0); Total Protein 5.7 g/dL (6.4-8.9)
[2021-10-25] MEDS: Ondansetron 4 mg VIAL 2 MG/ML 2 ml VIAL IV PRN (08:08)
[2021-10-25] MEDS ORDERED: Prochlorperazine 5 mg/ml 2 ml VIAL (10 mg) IV PRN (09:32)
[2021-10-25] MEDS ORDERED: oxyCODONE/Acetamin 5/325 mg TAB PO PRN (09:40)
[2021-10-25] MEDS ORDERED: Scopolamine 1 mg/72hr PATCH TRANSDERM SCH (10:00)
[2021-10-25 11:56] VITALS: BP 119/78
== END 2021-10-25 16:25 | disposition home or self-care (01) ==
LOC: EDHOLD 12:13 → ED 12:13 → SSU 13:12
PROVIDERS: ADMIT Surgery; ATTEND Surgery

== ENCOUNTER 2023-06-26 20:31 | Inpatient (IN) ==
[2023-06-26] MEDS ORDERED: Prochlorperazine 5 mg/ml 2 ml VIAL (10 mg) IV PRN (22:41)
[2023-06-26] MEDS ORDERED: Lidocaine 1% VIAL 10 MG/ML 30 ML VIAL INJ PRN (22:41)
[2023-06-26] MEDS ORDERED: Lactated Ringers 1000 ml BAG 1,000 ML IV ONE (22:41)
[2023-06-27 00:03] LABS: Hematocrit 30.3 % (35-45); Hemoglobin 10.3 g/dL (11.5-14.3); Mean Corpuscular Hemoglobin 28.6 pg (27-33); Mean Corpuscular Hgb Conc 33.9 g/dL (31-36); Mean Corpuscular Volume 84.2 fL (80-97); Red Cell Distribution Width 16.5 % (12-17); White Blood Count 11.8 10^3/uL (3.8-11.8)
[2023-06-27 00:05] LABS: ABS Basophils 0.1 10^3/uL (0.0-0.1); ABS Eosinophils 0.1 10^3/uL (0.0-0.5); ABS Lymphocytes 3.1 10^3/uL (1.0-4.8); ABS Monocytes 0.7 10^3/uL (0.0-0.9); ABS Neutrophils 7.9 10^3/uL (1.5-7.6); ABS Nucleated RBC 0.04 10^3/ul; Eosinophil % 0.8 %; Nucleated Red Blood Cells % 0.3 %/100WBC (0.0-0.8)
[2023-06-27] MEDS: Oxytocin in LR 20,000 MILLI.UNIT/1,000 ML BAG IV SCH ×2 (00:12→06:56)
[2023-06-27] MEDS: Lactated Ringers 1000 ml BAG 1,000 ML IV SCH (00:13)
[2023-06-27 00:18] LABS: Urine Benzodiazepine Screen None Detected (None Detect); Urine Cannabinoids Screen None Detected (None Detect); Urine Opiates Screen None Detected (None Detect)
[2023-06-27 00:27] LABS: Platelet Count Platelets clumped. 10^3/uL (150-450)
[2023-06-27 03:32] LABS: Hematocrit 29.6 % (35-45); Mean Corpuscular Hemoglobin 28.5 pg (27-33); Mean Corpuscular Hgb Conc 33.7 g/dL (31-36); Mean Corpuscular Volume 84.5 fL (80-97); Mean Platelet Volume 9.9 fL (7.5-11.2); Platelet Count 187 10^3/uL (150-450); Red Blood Count 3.51 10^6/uL (3.63-4.92); Red Cell Distribution Width 16.3 % (12-17); White Blood Count 9.4 10^3/uL (3.8-11.8)
[2023-06-27] MEDS: Ondansetron 4 mg VIAL 2 MG/ML 2 ml VIAL IV PRN (03:32)
[2023-06-27] MEDS ORDERED: Lactated Ringers 1000 ml BAG 1,000 ML IV ONE (04:12)
[2023-06-27] MEDS ORDERED: Phenylephrine 40 mcg/mL 10mL (400mcg) SYRINGE IV PUSH PRN ×2 (04:12)
[2023-06-27] MEDS ORDERED: Sodium Citrate/Citric Acid LIQ 15 ML UDC PO PRN (04:12)
[2023-06-27] MEDS ORDERED: Witch Hazel PAD JAR TOPICAL PRN (04:21)
[2023-06-27] MEDS ORDERED: Dibucaine 1% OINT 28.35 GM TUBE PR PRN (04:21)
[2023-06-27] MEDS ORDERED: Glycerin ADULT 2.4 gm SUPP PR PRN (04:21)
[2023-06-27] MEDS ORDERED: OBEPIDURAL (200 ML) 200 ML EPIDURAL SCH (05:00)
[2023-06-27] MEDS ORDERED: Lactated Ringers 1000 ml BAG 1,000 ML IV SCH ×2 (05:00)
[2023-06-27] MEDS: Buffered Lidocaine 1% SYRIN 1 ml INTRADERM ONE (06:55)
[2023-06-27] MEDS: OBEPIDURAL (200 ML) 0 ML EPIDURAL ONE (06:56)
[2023-06-27] MEDS: Lidocaine 1.5% EPI 1:200,000 30 ML SDV ONE (06:56)
[2023-06-28 07:04] LABS: ABS Eosinophils 0.1 10^3/uL (0.0-0.5); ABS Lymphocytes 2.2 10^3/uL (1.0-4.8); ABS Monocytes 0.4 10^3/uL (0.0-0.9); ABS Nucleated RBC 0.01 10^3/ul; Eosinophil % 1.3 %; Hemoglobin 9.7 g/dL (11.5-14.3); Lymphocyte % 28.3 %; Mean Corpuscular Hemoglobin 28.6 pg (27-33); Mean Corpuscular Hgb Conc 33.5 g/dL (31-36); Mean Corpuscular Volume 85.4 fL (80-97); Nucleated Red Blood Cells % 0.1 %/100WBC (0.0-0.8); Platelet Count 155 10^3/uL (150-450); Red Cell Distribution Width 16.4 % (12-17); White Blood Count 7.7 10^3/uL (3.8-11.8)
[2023-06-28] MEDS: Enoxaparin 40 MG/0.4 ML SYR SUBCUT SCH (19:45)
[2023-06-29 04:23] VITALS: BP 103/67
== END 2023-06-29 11:30 | disposition home or self-care (01) | DRG 560 ==
LOC: MCHOBOUT 20:31 → MCHOB 22:38
PROVIDERS: ADMIT Advanced Practice Midwife; ATTEND Advanced Practice Midwife